=== PATIENT | female | born 1940 | race Caucasian/White ===

== ENCOUNTER 2021-06-27 16:57 | Emergency (ER) | payer MEDICARE, SELFPAY ==
--- NOTE | ~2021-06-27 | XR_ITS ---
EXAMINATION: XR hip RT min 2V DATE: 06/27/2021 19:28 INDICATION: Right hip pain. TECHNIQUE: Anteroposterior and frog-leg lateral views of the right hip were obtained. COMPARISON: None. FINDINGS: Old healed intertrochanteric fracture the proximal right femur with antegrade intramedullary ryan and femoral neck and distal interlocking screw fixation. Additional likely old healed fractures of the ri ght pubic body and superior pubic ramus. No acute fractures identified. Alignment of the healed fract ures remains near-anatomic. Mild right hip osteoarthritis. Mild atherosclerotic calcification is in t he pelvis and proximal right thigh. IMPRESSION: 1. Old healed fractures of the proximal right femur with internal fixation and of the right pubic bod y and superior pubic ramus. No acute osseous abnormality. 2. Mild right hip osteoarthritis. Reviewed, dictated and finalized at location A. SHEEP FARMER IMPRESSION: 1. Old healed fractures of the proximal right femur with internal fixation and of the right pubic body and superior pubic ramus. No acute osseous abnormality. 2. Mild right hip osteoarthritis.
[2021-06-27 17:35] VITALS: BP 106/67; PULSE 81; RESP 18; TEMP 36.6; O2SAT 100
[2021-06-27 17:57] VITALS: BP 103/81; PULSE 98; RESP 18; O2SAT 98
--- NOTE | 2021-06-27 18:11 | PC.NURSE ---
aware this RN unable to find pulse in foot. Triage nurse also alerted
--- NOTE | 2021-06-27 19:02 | ED.EXTPRO ---
HPI - Extremity Problem General Chief complaint: Extremity Problem,Nontraumatic Stated complaint: numbness and pain in leg Time Seen by Provider: 06/27/21 17:54 Source: patient and family Mode of arrival: ambulatory Limitations: no limitations History of Present Illness HPI Narrative: 81-year-old female Here for right leg pain She reports several weeks of pain in her right leg Sometimes she has pain in the proximal thigh and hip and butt but mostly she has pain in her calf and foot and that pain is mostly present after she is walked for a while She saw her doctor in [facility] and is scheduled to have vascular studies done in [facility] next week and it sounds like her cholesterol medications were intensified She is in this area visiting family until this Covid goes away and came to the ED tonight because she has been having some pain more in the foot more when she just tried to stand up for the last couple of days, and the foot felt more cool However right now this issue is resolved and she is able to walk around in the room without any issue at all Related Data Allergies Allergy/AdvReac Type Severity Reaction Status Date / Time morphine Allergy Severe RASH / Verified 06/27/21 18:10 SWELLING Review of Systems Review of Systems: All systems reviewed & are unremarkable except as noted in HPI and below Constitutional: Constitutional: Reports no additional constitutional complaints, Denies chills, Denies fever(s) and Denies headache(s) ENT: Denies headache(s) Cardiovascular: Cardiovascular: Denies chest pain and Denies dyspnea Respiratory: Respiratory: Denies cough and Denies dyspnea Gastrointestinal: Gastrointestinal: Denies diarrhea and Denies vomiting Genitourinary: Genitourinary: Denies urinary frequency Musculoskeletal: Musculoskeletal: Reports myalgias, Denies deformity, Reports arthralgias, Reports joint swelling and Denies numbness Integumentary/Breasts: Skin/Breast: Denies rash and Denies wounds Neurologic: Denies headache(s), Denies focal weakness and Reports numbness Psychiatric: Psychiatric: Reports no additional psychiatric complaints Endocrine: Endocrine: Reports no additional endocrine complaints Hematologic/Lymphatic: Hematologic/Lymphatic: Reports no additional hematologic/lymphatic complaints Allergic/Immunologic: Allergic/Immunologic: Reports no additional allergic/immunologic complaints Exam Const: General: cooperative, no acute distress and alert Nutritional Appearance: thin Orientation/consciousness: patient oriented x3 (alert) HENMT: Head: normal to inspection, normocephalic and atraumatic Ears: external ears normal General nose exam: no epistaxis Eyes: Conjunctivae: conjunctivae normal EOM: EOMs intact bilaterally Neck: Neck: normal visual inspection, supple and no JVD Resp: Effort & Inspection: normal respiratory effort and not labored Auscultation: other (BS =) Skin: General skin exam: normal color and no rashes or lesions noted Neuro: General: patient oriented x3 (alert) and moves all extremities Speech: normal speech Extrem: General: normal to inspection and no pedal edema Other: Right hip, no tenderness, good range of motion Right foot, slow cap refill 5 to 10 seconds; cannot Doppler a dorsalis pedis pulse; posterior tibial pulse is dopplerable and questionably palpable Right femoral pulse is 1-2+, left femoral pulse is 1+ Psych: Affect: normal affect Course Course Emergency Course: Went over various options at considerable length with patient and her daughter She is scheduled for outpatient arterial Dopplers here tomorrow morning I am very certain she will need to see a vascular surgeon after that for further assessment and various alternatives were presented to her Vital Signs Vital signs: Vital Signs Temperature 36.6 C 06/27/21 17:35 Pulse Rate 81 06/27/21 17:35 Respiratory Rate 18 06/27/21 17:35 Blood Pressure 106/
[2021-06-27 20:15] VITALS: O2SAT 100
[2021-06-27 20:16] VITALS: BP 105/73; O2SAT 98
[2021-06-27 20:28] VITALS: BP 101/63; O2SAT 95
[2021-06-27 20:40] VITALS: BP 101/63; PULSE 80; RESP 18; TEMP 36.6; O2SAT 99
== END 2021-06-27 20:46 | disposition home or self-care (01) ==
PROVIDERS: Emergency Provider Emergency Medicine; PCP Family Medicine
DX: I73.9 Peripheral vascular disease, unspecified (principal); M16.11 Unilateral primary osteoarthritis, right hip
CPT/HCPCS: 73502; 99283

== ENCOUNTER 2021-06-28 08:24 | Outpatient (CLI) | payer MEDICARE, SELFPAY ==
--- NOTE | ~2021-06-28 | US_ITS ---
EXAMINATION: US art doppler w press LE DATE: 06/28/2021 09:31 INDICATION: Peripheral vascular disease. Claudication. TECHNIQUE: Segmental pressures and plethysmographic and Doppler waveforms of the brachial and lower e xtremity arteries were obtained. COMPARISON: None. FINDINGS: Right and left brachial artery pressures of 99 mm Hg and 105 mm Hg, respectively, are concordant (nor mal difference <= 30 mmHg). The right high-thigh pressure index is 0.70 (normal > 1.2). The right ankle-brachial index (NANETTE) is 0 .35 (normal >= 0.9-1.0). The right dorsalis pedis arterial flow was not detectable. The right great t oe-brachial index (TBI) could not be measured due to inability to detect arterial flow in the great t oe (normal >= 0.65). Arterial Doppler waveforms are biphasic in common femoral artery, superficial fe moral artery, and popliteal artery and noisy in posterior tibial artery. The left high-thigh pressure index is 0.83. The left NANETTE is 0.81. The left TBI is 0.35. Arterial Dopp ler waveforms are noisy in common femoral artery, biphasic in superficial femoral artery and poplitea l artery, and noisy in posterior tibial artery and dorsalis pedis. IMPRESSION: 1. Severely decreased right NANETTE and mildly decreased left NANETTE, consistent with arterial occlusive dis ease. 2. Arterial flow not detectable in right dorsalis pedis and right great toe. Reviewed, dictated and finalized at location A. L POST INSTALLER IMPRESSION: 1. Severely decreased right NANETTE and mildly decreased left NANETTE, consistent with arterial occlusive disease. 2. Arterial flow not detectable in right dorsalis pedis and right great toe.
--- NOTE | 2021-06-28 10:38 | PC.NURSE ---
Pt's daughter Sherry notified of patient needing to return to the emergency department due to the results of the outpatient ultrasound. The daughter and the patient have chosen to proceed to another facility with a vascular doctor that they had been given in [facility]. 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 Verbalized understanding of needing prompt follow up.
== END 2021-06-28 08:25 | disposition home or self-care (01) ==
PROVIDERS: Visit Provider Emergency Medicine
DX: I73.9 Peripheral vascular disease, unspecified (principal)
CPT/HCPCS: 93923

== ENCOUNTER 2021-10-03 12:07 | Outpatient (CLI) | payer MEDICARE, SELFPAY ==
[2021-10-03 14:05] LABS: Prothrombin Time 22.2 Seconds (11.1-14.7)
== END 2021-10-03 12:08 | disposition home or self-care (01) ==
DX: I48.91 Unspecified atrial fibrillation (principal); Z79.01 Long term (current) use of anticoagulants
CPT/HCPCS: 36415; 85610

== ENCOUNTER 2022-05-02 10:34 | Inpatient (IN) | payer MEDICARE, SELFPAY ==
[2022-05-02] VITALS (11 sets, daily range): BP systolic 99–121; BP diastolic 63–79; PULSE 72–92; RESP 14–24; TEMP 36.4–36.6; O2SAT 92–97; BMI 17.2
--- NOTE | ~2022-05-02 | XR_ITS ---
XR chest 1V portable DATE: 05/02/2022 11:17 INDICATION: Increased shortness of breath TECHNIQUE: Portable AP chest on 05/02/2022 at 1110 hours COMPARISON: 09/04/2012 portable AP chest FINDINGS: Status post sternotomy and CABG. There is cardiomegaly. Prominent mitral annulus calcification. Prominent aortic arch calcification. There is mild pulmonary vascular congestion. There is mild prominence of the minor fissure, consiste nt with mild subpleural edema. There is bilateral lower lung infiltrate and/or consolidation, left greater than right. Mild pleural effusions, left greater than right. There is diffuse osteopenia. IMPRESSION: Bilateral lower lung infiltrate and/or atelectasis and mild pleural effusions, left great er than right Mild congestive heart failure Reviewed, dictated and finalized at location B. IMPRESSION: Bilateral lower lung infiltrate and/or atelectasis and mild pleural effusions, left greater than right Mild congestive heart failure
--- NOTE | ~2022-05-02 | CT_ITS ---
EXAMINATION: CT diagnostic chest wo con DATE: 05/02/2022 13:18 INDICATION: Shortness of breath. Evaluate for pneumonia versus CHF. TECHNIQUE: Computed tomography (CT) of the chest was performed without intravenous contrast. The dose -length product was 171.82 mGy-cm. Automated exposure control and iterative reconstruction technique were employed. COMPARISON: Chest x-ray dated 05/02/2022 FINDINGS: Cardiomegaly. Status post median sternotomy for CABG. No thoracic lymphadenopathy. Enlarged pulmonary arteries consistent with pulmonary arterial hypertension. Small pleural effusions. There i s emphysema. There is bilateral lower lobe airspace disease which may represent pneumonia and/or atel ectasis. There is a low-density lesion near the dome of the liver, most likely benign. No pneumothora x. There are multiple compression fractures of the thoracic and upper lumbar spine, age indeterminate . IMPRESSION: 1. Bilateral lower lobe airspace consolidation which may represent pneumonia and/or atelectasis. 2: Pulmonary arterial hypertension. 3: Small pleural effusions. 4: Emphysema. 5: Cardiomegaly. Reviewed, dictated and finalized at location A. IMPRESSION: 1. Bilateral lower lobe airspace consolidation which may represent pneumonia an d/or atelectasis. 2: Pulmonary arterial hypertension. 3: Small pleural effusions. 4: Emphysema. 5: Cardiomegaly.
--- NOTE | 2022-05-02 10:46 | ECG_ITS ---
Measurements Intervals [place] Rate: 89 P: RI: 0 QRS: -42 QRSD: 153 T: 130 QT: 379 QTc: 463 Interpretive Statements ATRIAL FIBRILLATION LEFT AXIS DEVIATION LEFT BUNDLE BRANCH BLOCK BASELINE WANDER- V3-V6 ABNORMAL ECG NO PREVIOUS ECG AVAILABLE FOR COMPARISON Electronically Signed On 05-02-2022 12:19:36 CDT by Ravinder Guerra D.O.
[2022-05-02 11:01] LABS: Basophils Absolute Auto 0.1 K/mm3 (0.0-0.1); Basophils Percent Auto 0.7 % (0.2-1.2); Eosinophils Percent Auto 0.3 % (0-4.4); Hematocrit 46.5 % (37.0-47.0); Hemoglobin 14.4 g/dL (12.0-15.0); Immature Granulocyte Absolute 0.02 K/mm3 (0.00-0.031); Immature Granulocyte Percent A 0.3 % (0-0.5); Lymphocytes Absolute Auto 1.09 K/mm3 (0.9-3.2); Lymphocytes Percent Auto 14.3 % (18.3-44.2); Mean Corpuscular Hemoglobin 29.8 pg (26-34); Mean Corpuscular Volume 96.3 fl (80-100); Mean Platelet Volume 11.2 fl (7.4-10.4); Monocytes Absolute Auto 0.6 K/mm3 (0.1-0.6); Monocytes Percent Auto 8.3 % (2.6-8.5); Neutrophils Absolute Auto 5.8 K/mm3 (1.3-6.7); Neutrophils Percent Auto 76.1 % (45.5-73.1); Platelet Count Result 245 k/mm3 (150-375); Red Blood Count 4.83 M/mm3 (4.2-5.4); Red Cell Distribution Width 16.7 % (11.5-14.5); White Blood Count 7.6 K/mm3 (4.5-10.0)
[2022-05-02 11:22] LABS: Alanine Aminotransferase 33 U/L (6-35); Albumin Level 4.7 g/dL (3.5-5.1); Alkaline Phosphatase 97 U/L (38-126); Anion Gap 19 mmol/L (8-16); Aspartate Amino Transferase 39 U/L (14-36); Bilirubin,Total 1.8 mg/dL (0.2-1.3); Blood Urea Nitrogen 27 mg/dL (7-17); Calcium 9.2 mg/dL (8.4-10.2); Carbon Dioxide 23 mmol/L (22-30); Chloride 98 mmol/L (98-107); Estimated Glomerular Filt Rate > 60; Glucose 135 mg/dL (65-110); Potassium 4.3 mmol/L (3.4-5.0); Sodium 140 mmol/L (137-145)
[2022-05-02 11:32] LABS: INR 4.8; Prothrombin Time 43.7 Seconds (11.1-14.7)
[2022-05-02 11:33] LABS: Partial Thromboplastin Time 62.2 SECONDS (22.3-36.8)
[2022-05-02 11:39] LABS: NT Pro B Type Natriuretic Pept 21400 pg/mL (5-100)
--- NOTE | 2022-05-02 11:51 | ED.SOB ---
HPI - SOB/Dyspnea General Chief Complaint: Shortness of Breath/Dyspnea Stated Complaint: SOB X3D. N/V Time Seen by Provider: 05/02/22 11:50 Source: patient and family Limitations: no limitations History of Present Illness HPI Narrative: 82 years old white female came to the emergency room with her daughter from home complaining of increased shortness of breath over the last 3 days. The daughter is telling me that patient ejection fraction around 11%. Patient is DNR, vaccinated for COVID, did not have booster dose yet, likely communication today patient is coming to see me. History of CABG, coronary stents recently, on Coumadin, stopped smoking 2020. Patient normally not on oxygen at home. The patient and her daughter are poor historian, does not know her past medical history, does not know the name of her medications. Normally she goes to [facility]. Related Data Home Medications Medication Instructions Recorded Confirmed aspirin 81 mg tablet,delayed 81 mg PO DAILY 05/02/22 05/02/22 release digoxin 125 mcg (0.125 mg) tablet 125 mcg PO DAILY 05/02/22 05/02/22 furosemide 20 mg tablet 20 mg PO DAILY 05/02/22 05/02/22 warfarin 2.5 mg tablet 2.5 mg PO 05/02/22 Allergies Allergy/AdvReac Type Severity Reaction Status Date / Time morphine Allergy Severe RASH / Verified 05/02/22 10:47 SWELLING Review of Systems Review of Systems: All systems reviewed & are unremarkable except as noted in HPI and below Exam Narrative: General appearance: Well-developed, well-nourished Skin: Normal color Head: Normocephalic, nontraumatic Eyes: Clear conjunctiva ENT: Oropharynx normal, ears normal, nose normal Neck: Supple, nontender Chest and respiratory: Airway patent, slight labored breathing, dry rales bilaterally Heart: Regular rate/rhythm Abdomen: Soft, nontender, no organomegaly, quiet bowel sounds Vascular: Normal peripheral pulses, normal capillary refill. 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 as tested, no gross motor deficit Course Vital Signs Vital signs: Vital Signs Temperature 36.6 C 05/02/22 10:44 Pulse Rate 92 05/02/22 10:44 Respiratory Rate 14 05/02/22 10:44 Blood Pressure 111/79 05/02/22 10:44 Pulse Oximetry 95 05/02/22 10:44 Oxygen Delivery Room Air 05/02/22 10:44 Temperature 36.6 C 05/02/22 10:44 Pulse Rate 92 05/02/22 10:51 Respiratory Rate 14 05/02/22 10:44 Blood Pressure 111/79 05/02/22 10:44 Pulse Oximetry 95 05/02/22 10:51 Oxygen Delivery Room Air 05/02/22 10:51 MDM - SOB/Dyspnea Lab Data Result diagrams: 05/02/22 10:55 05/02/22 10:55 Labs: Lab Results 05/02/22 05/02/22 05/02/22 Range/Units 10:55 10:55 10:55 WBC 7.6 (4.5-10.0) K/mm3 RBC 4.83 (4.2-5.4) M/mm3 Hgb 14.4 (12.0-15.0) g/dL Hct 46.5 (37.0-47.0) % MCV 96.3 (80-100) fl MCH 29.8 (26-34) pg MCHC 31.0 L (32-36) g/dl RDW 16.7 H (11.5-14.5) % Plt Count 245 (150-375) k/mm3 MPV 11.2 H (7.4-10.4) fl Immature Gran % (Auto) 0.3 (0-0.5) % Neut % (Auto) 76.1 H (45.5-73.1) % Lymph % (Auto) 14.3 L (18.3-44.2) % [place] % (Auto) 8.3 (2.6-8.5) % Eos % (Auto) 0.3 (0-4.4) % Baso % (Auto) 0.7 (0.2-1.2) % Lymph # (Auto) 1.09 (0.9-3.2) K/mm3 [place] # (Auto) 0.6 (0.1-0.6) K/mm3 Eos # (Auto) 0.0 (0-0.3) K/mm3 Baso # (Auto) 0.1 (0.0-0.1) K/mm3 Abs Immat Gran (auto) 0.02 (0.00-0.031) K/mm3 Absolute Neuts (auto) 5.8 (1.3-6.7) K/mm3 Absolute Nucleated RBC 0.0 (0.0-0.012) K/mm3 Nucleated RBC % 0.0 (0.0-0.
[2022-05-02 12:16] LABS: Alveolar/Arterial O2 Gradient 50.6 mmHg; Base Excess ABG -1.5 mEq/l (+/-2.0); Fractional Inspired Oxygen 21 %; HCO3 ABG 20.9 mEq/l (22.0-26.0); Oxygen Content ABG 17.5 %vol (16.0-22.0); Oxygen Saturation ABG 94.2 % (95.0-100.0); Oxyhemoglobin 91.7 % THb (90.0-100.0); PO2 ABG 64.4 mmHg (80.0-100.0); PO2 FiO2 Ratio Arterial Blood 3.07 %; Total Hemoglobin 13.6 g/dL (12.0-18.0); pH ABG 7.475 (7.350-7.450)
[2022-05-02 12:17] LABS: Device ROOM AIR; Modified Allen's Test Pass; Site Drawn LEFT BRACHIAL
[2022-05-02] MEDS: FUROSEMIDE INJ 40 MG/4 ML VIAL IV PUSH (12:48)
[2022-05-02 13:07] LABS: SARS-CoV-2 RNA PCR Negative
[2022-05-02 15:09] LABS: Digoxin 0.6 ng/mL (0.8-2.0)
[2022-05-02 16:41] LABS: Troponin I 0.058 ng/mL (0.000-0.034)
--- NOTE | 2022-05-02 18:04 | ADMGEN ---
This patient, Aline Calle, was admitted to IMU Room 205-01. Patient/family oriented to hospital policies and general routines including ID bracelet, bed and alarms, visiting hours, pain management, procedures, bathroom and other care routines, personal items, smoking policy, room service/diet, and visiting hours. Information on how to activate the Rapid Response Team has been discussed. Patient/Family are encouraged to report perceived risks to care and to ask questions if they do not understand what they are told or what they should do.
[2022-05-02 19:36] LABS: Troponin I 0.084 ng/mL (0.000-0.034)
[2022-05-02] MEDS: FUROSEMIDE INJ 40 MG/4 ML VIAL 20 MG IV PUSH (20:49)
--- NOTE | 2022-05-02 22:00 | PM.IMHP ---
H&P: HPI History of Present Illness Date/Time: 05/02/22 22:00 Chief Complaint: Shortness of breath. Narrative: This is an 82-year-old female with coronary artery disease with history of stents and CABG, heart failure with reduced ejection fraction, peripheral vascular disease status post lower extremity stents, and emphysema who presented to the emergency department via private vehicle from home for evaluation of shortness of breath. She has chronic dyspnea on exertion and chronic orthopnea (sleeps on the couch) however over the last several days she has been getting short of breath with minimal activity (adjusting herself in bed) and she has also had intermittent tightness in her chest though she reports that is not similar when she had a previous heart attack. On arrival to the emergency department she was reportedly ?gasping for air? and she was placed on 2 liters nasal cannula for comfort. Chest x-ray showed bilateral infiltrates and/or atelectasis, small pleural effusions, and mild congestive changes. A chest CT showed the same in addition to findings of pulmonary arterial hypertension, emphysema, and cardiomegaly. Her troponin was elevated 0.050 and proBNP was markedly elevated 21,400. She is being admitted in this setting for CHF exacerbation and closer monitoring. At the time my evaluation she is feeling a bit better and she has no current chest discomfort. She denies syncope, presyncope, pleuritic pain, palpitations, nausea, vomiting, sweats, cough, sinus congestion, sore throat, and lower extremity edema. She denies sick contacts. Review of Systems Review of Systems: Twelve systems were reviewed and are negative except for as per HPI. [facility] Past Medical History Medical History (Updated 05/03/22 @ 00:24 by Tamie London PA-C) Chronic anticoagulation Patient is uncertain as to why she is on warfarin. Coronary artery disease Followed by [facility]. Dyslipidemia Emphysema lung Former smoker Heart failure with reduced ejection fraction Hypertension Peripheral vascular disease Pulmonary hypertension Surgical History Surgical History (Updated 05/03/22 @ 00:19 by Tamie London PA-C) History of coronary artery bypass graft History of coronary artery stent placement History of open reduction and internal fixation (ORIF) procedure Right femur. History of tonsillectomy Family History Family History (Updated 05/03/22 @ 00:19 by Tamie London PA-C) Other Heart disease Hypertension Social History Social History (Updated 05/03/22 @ 00:20 by Tamie London PA-C) Social History: Surrogate medical decision maker: Sherry Flower or Rishabh De Los Santos, children. Code status: Do not resuscitate. Smoking packs per day: 1 Smoking cigarettes per day: 20.0 Years smoked: 50 Smoking pack-years: 50.00 Smoking status: Former smoker Additional smoking assessment comments: Quit in June 2021. Alcohol intake: never Substance use: never Additional living arrangements comments: Currently staying with a friend in the area, originally from [place]. Spiritual care concerns: Yes (pt just wants a visit) Meds Home Medications and Allergies Home Medications Medication Instructions Recorded Confirmed Type aspirin 81 mg tablet,delayed 81 mg PO DAILY 05/02/22 05/02/22 History release digoxin 125 mcg (0.125 mg) tablet 125 mcg PO DAILY 05/02/22 05/02/22 History furosemide 20 mg tablet 20 mg PO DAILY 05/02/22 05/02/22 History warfarin 2.5 mg tablet 2.5 mg PO DAILY 05/02/22 05/02/22 History Allergies Allergy/AdvReac Type Severity Reaction Status Date / Time morphine Allergy Severe RASH / Verified 05/02/22 10:47 SWELLING Vital Signs Vital Signs - 24 hr 05/02/22 10:44 05/02/22 10:51 05/02/22 10:51 Temperature 97.8 F Pulse Rate 92 92 Respiratory Rate 14 Blood Pressure 111/79 Pulse Oximetry 95 95 Oxygen Delivery Room Air Room Air O
[2022-05-03] VITALS (13 sets, daily range): BP systolic 96–114; BP diastolic 63–80; PULSE 66–99; RESP 18–22; TEMP 36.4–36.6; O2SAT 92–99; BMI 17.2
[2022-05-03 04:47] LABS: Hematocrit 41.6 % (37.0-47.0); Hemoglobin 12.9 g/dL (12.0-15.0); Mean Corpuscular Hemoglobin 29.4 pg (26-34); Mean Corpuscular Volume 94.8 fl (80-100); Mean Platelet Volume 10.8 fl (7.4-10.4); Platelet Count Result 194 k/mm3 (150-375); Red Blood Count 4.39 M/mm3 (4.2-5.4); Red Cell Distribution Width 16.3 % (11.5-14.5); White Blood Count 6.3 K/mm3 (4.5-10.0)
[2022-05-03 04:59] LABS: INR 4.4; Prothrombin Time 40.7 Seconds (11.1-14.7)
[2022-05-03 05:01] LABS: Alanine Aminotransferase 23 U/L (6-35); Albumin Level 3.9 g/dL (3.5-5.1); Alkaline Phosphatase 81 U/L (38-126); Anion Gap 12 mmol/L (8-16); Aspartate Amino Transferase 25 U/L (14-36); Bilirubin,Total 1.3 mg/dL (0.2-1.3); Blood Urea Nitrogen 25 mg/dL (7-17); Calcium 8.7 mg/dL (8.4-10.2); Carbon Dioxide 29 mmol/L (22-30); Chloride 98 mmol/L (98-107); Estimated CRCL calculation 39 ml/min; Estimated Glomerular Filt Rate > 60; Glucose 92 mg/dL (65-110); Potassium 4.6 mmol/L (3.4-5.0); Sodium 139 mmol/L (137-145)
--- NOTE | 2022-05-03 09:25 | P.CONCA_ITS ---
Assessment and Plan Assessment and plan (1) Acute on chronic systolic heart failure: Code(s): I50.23 - Acute on chronic systolic (congestive) heart failure Status: Acute Assessment and Plan: Patient with a known cardiomyopathy, EF she 5-10%, admitted with mild exacerbation of her chronic systolic heart failure. * Not very volume overloaded. * Not clear what the eliciting event was. No nonsteroidal use. No recent medication changes. Most likely this exacerbation is just the nature of her underlying cardiomyopathy, although when she last saw her complex care nurse practitioner apparently she was in NSR so the AFib may possibly be contributing as well. * Continue Lasix IV for another couple doses * Daily BMP (2) Elevated troponin: Code(s): R77.8 - Other specified abnormalities of plasma proteins Status: Acute Assessment and Plan: The patient has elevated troponins although these are flat. Her symptoms seem very atypical. * Cardiac catheterization in August 02 did not show any need for intervention. * I think is unlikely she has had an acute coronary syndrome event. * I do not think she needs an ischemia evaluation this admission. (3) Paroxysmal atrial fibrillation: Code(s): I48.0 - Paroxysmal atrial fibrillation Status: Acute Assessment and Plan: History of paroxysmal AFib, currently persistent. * Chronically anticoagulated with warfarin. Was supratherapeutic on admission and warfarin is being held. (4) Dilated cardiomyopathy: Code(s): I42.0 - Dilated cardiomyopathy Status: Acute Assessment and Plan: Cardiomyopathy, dilated versus ischemic, EF 5-10% as of July 2021, 10-15% in October 2021. * Unable to tolerate usual guideline directed therapy due to low blood pressure. * Now on fairly minimal cardiac therapy * On discharge, follow-up with her per usual complex care nurse practitioner Dr. Browne. Dr. Browne is encouraging palliative care. * Patient is DNR status. (5) Coronary artery disease: Code(s): I25.10 - Atherosclerotic heart disease of [place] coronary artery without angina pectoris Status: Acute Assessment and Plan: History of CAD, and remote CABG * Taking aspirin but not on statin therapy as patient did desire to reduce number of medications * Atypical chest pain, doubt angina (6) LBBB (left bundle branch block): Code(s): I44.7 - Left bundle-branch block, unspecified Status: Acute Assessment and Plan: Chronic LBBB. (7) Chronic anticoagulation: Code(s): Z79.01 - prison (current) use of anticoagulants Status: Acute Assessment and Plan: On warfarin for paroxysmal AFib, supratherapeutic INR on admission. * Warfarin on hold (8) Peripheral vascular disease: Code(s): I73.9 - Peripheral vascular disease, unspecified Status: Acute Assessment and Plan: History of intervention in the past, not an active problem. (9) DNR (do not resuscitate): Code(s): Z66 - Do not resuscitate Status: Acute Assessment and Plan: Patient is a DNR status. The patient's complex care nurse practitioner is encouraging palliative care. History of Present Illness History of Present Illness Consult date/time: 05/03/22 09:25 Reason For Visit: chf,elevated troponin,coumadin coagulopathy Narrative: Aline Calle is an 82-year-old female whom I was asked to see at the request of Tamie London PA-C, for my advice and
--- NOTE | 2022-05-03 09:25 | PM.CNCAR ---
Assessment and Plan Assessment and plan (1) Acute on chronic systolic heart failure: Code(s): I50.23 - Acute on chronic systolic (congestive) heart failure Status: Acute Assessment and Plan: Patient with a known cardiomyopathy, EF she 5-10%, admitted with mild exacerbation of her chronic systolic heart failure. Not very volume overloaded. Not clear what the eliciting event was. No nonsteroidal use. No recent medication changes. Most likely this exacerbation is just the nature of her underlying cardiomyopathy, although when she last saw her dramatic coach apparently she was in NSR so the AFib may possibly be contributing as well. Continue Lasix IV for another couple doses Daily BMP (2) Elevated troponin: Code(s): R77.8 - Other specified abnormalities of plasma proteins Status: Acute Assessment and Plan: The patient has elevated troponins although these are flat. Her symptoms seem very atypical. Cardiac catheterization in August 02 did not show any need for intervention. I think is unlikely she has had an acute coronary syndrome event. I do not think she needs an ischemia evaluation this admission. (3) Paroxysmal atrial fibrillation: Code(s): I48.0 - Paroxysmal atrial fibrillation Status: Acute Assessment and Plan: History of paroxysmal AFib, currently persistent. Chronically anticoagulated with warfarin. Was supratherapeutic on admission and warfarin is being held. (4) Dilated cardiomyopathy: Code(s): I42.0 - Dilated cardiomyopathy Status: Acute Assessment and Plan: Cardiomyopathy, dilated versus ischemic, EF 5-10% as of July 2021, 10-15% in October 2021. Unable to tolerate usual guideline directed therapy due to low blood pressure. Now on fairly minimal cardiac therapy On discharge, follow-up with her per usual dramatic coach Dr. Browne. Dr. Browne is encouraging palliative care. Patient is DNR status. (5) Coronary artery disease: Code(s): I25.10 - Atherosclerotic heart disease of [place] coronary artery without angina pectoris Status: Acute Assessment and Plan: History of CAD, and remote CABG Taking aspirin but not on statin therapy as patient did desire to reduce number of medications Atypical chest pain, doubt angina (6) LBBB (left bundle branch block): Code(s): I44.7 - Left bundle-branch block, unspecified Status: Acute Assessment and Plan: Chronic LBBB. (7) Chronic anticoagulation: Code(s): Z79.01 - group home (current) use of anticoagulants Status: Acute Assessment and Plan: On warfarin for paroxysmal AFib, supratherapeutic INR on admission. Warfarin on hold (8) Peripheral vascular disease: Code(s): I73.9 - Peripheral vascular disease, unspecified Status: Acute Assessment and Plan: History of intervention in the past, not an active problem. (9) DNR (do not resuscitate): Code(s): Z66 - Do not resuscitate Status: Acute Assessment and Plan: Patient is a DNR status. The patient's dramatic coach is encouraging palliative care. History of Present Illness History of Present Illness Consult date/time: 05/03/22 09:25 Reason For Visit: chf,elevated troponin,coumadin coagulopathy Narrative: Aline Calle is an 82-year-old female whom I was asked to see at the request of Tamie London PA-C, for my advice and opinion regarding her CHF exacerbation and elevated troponins, in consultation. Ms Calle has memory problems and is a poor historian. She has history of coronary disease starting in her 50s, remote CABG, coronary stents June 2021? , and an apparent ejection fraction of 11%. She is anticoagulated with warfarin which may be a relatively new medication. She sees a dramatic coach in [place] whose name she can not quite remember (Dr. Browne, office [phone] -- call placed), and was seen 1 week ago. Sh
[2022-05-03] MEDS: DIGOXIN TAB 125 MCG TABLET PO (12:24)
[2022-05-03] MEDS: ASPIRIN 81 MG ENTERIC TABLET PO (12:24)
[2022-05-03] MEDS: FUROSEMIDE INJ 40 MG/4 ML VIAL 20 MG IV PUSH ×2 (12:27→20:08)
--- NOTE | 2022-05-03 14:09 | PM.IMPN ---
Progress Note: A&P Assessment and Plan (1) Acute exacerbation of congestive heart failure: Code(s): I50.9 - Heart failure, unspecified Status: Acute Assessment and Plan: Continue to diuresis with IV lasix bid Monitor BMP Pt seen by cardiology Pt started on digoxin orally (2) Heart failure with reduced ejection fraction: Code(s): I50.20 - Unspecified systolic (congestive) heart failure Status: Acute Assessment and Plan: Pt has history of history of coronary disease, CABG, coronary stents recently, an apparent and ejection fraction of 11% (3) Chronic anticoagulation: Code(s): Z79.01 - [facility] (current) use of anticoagulants Status: Acute Assessment and Plan: Pt is on warfarin (4) Warfarin-induced coagulopathy: Code(s): D68.32 - Hemorrhagic disorder due to extrinsic circulating anticoagulants; T45.515A - Adverse effect of anticoagulants, initial encounter Status: Acute Assessment and Plan: Pt is on eliquis (5) Elevated troponin: Code(s): R77.8 - Other specified abnormalities of plasma proteins Status: Acute Assessment and Plan: Trop raise likley related to cHF exacerbation (6) Pulmonary hypertension: Code(s): I27.20 - Pulmonary hypertension, unspecified Status: Acute Assessment and Plan: Secondary to emphysema (7) Peripheral vascular disease: Code(s): I73.9 - Peripheral vascular disease, unspecified Status: Acute Assessment and Plan: 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 (8) Emphysema lung: Code(s): J43.9 - Emphysema, unspecified Status: Acute Assessment and Plan: Secondary to residential smoking (9) Coronary artery disease: Code(s): I25.10 - Atherosclerotic heart disease of [place] coronary artery without angina pectoris Status: Acute Assessment and Plan: chronic history (10) Hypertension: Code(s): I10 - Essential (primary) hypertension Status: Acute Assessment and Plan: chronic history Subjective Date/time seen: 05/03/22 14:09 82-year-old female with coronary artery disease with history of stents and CABG, heart failure with reduced ejection fraction, peripheral vascular disease status post lower extremity stents, and emphysema who presented to the emergency department via private vehicle from home for evaluation of shortness of breath. She has chronic dyspnea on exertion and chronic orthopnea (sleeps on the couch) however over the last several days she has been getting short of breath with minimal activity (adjusting herself in bed) and she has also had intermittent tightness in her chest though she reports that is not similar when she had a previous heart attack. Pt is admitted or SOB and cHF excerbation Pt feels sob on speaking and resting continue present care Cardiology on board Review of Systems Review of Systems: SOB at rest SOB on speaking Objective Data Vital Signs Vital Signs: Vital Signs - 24 hr 05/02/22 14:25 05/02/22 17:19 05/02/22 18:22 Temperature 36.4 C L Pulse Rate 90 85 81 Respiratory Rate 21 H 20 20 Blood Pressure 121/79 104/76 110/75 Pulse Oximetry 95 95 95 Oxygen Delivery Oxygen Flow Rate 05/02/22 18:30 05/02/22 20:00 05/02/22 20:00 Temperature 36.4 C Pulse Rate 81 72 Respiratory Rate 22 H Blood Pressure 102/69 Pulse Oximetry 92 Oxygen Delivery Room Air Oxygen Flow Rate 05/02/22 20:00 05/02/22 22:00 05/02/22 23:15 Temperature 36.5 C Pulse Rate 81 84 86 Respiratory Rate 22 H 20 Blood Pressure 99/63 L Pulse Oximetry 92 92 Oxygen Delivery Nasal Cannula Oxygen Flow Rate 2 05/03/22 00:00 05/03/22 00:00 05/03/22 01:56 Temperature Pulse Rate 82 82 78 Respiratory Rate 20 Blood Pressure Pulse Oximetry 92 Oxygen Delivery Nasal Cannula Oxygen Flow Rate 2 05/03/22 04:00 05/03/22 04:00 05/03/22 04:00 Temperat
[2022-05-04] VITALS (12 sets, daily range): BP systolic 91–111; BP diastolic 53–69; PULSE 58–104; RESP 16–20; TEMP 36.4–37.1; O2SAT 94–99
[2022-05-04 08:39] LABS: Anion Gap 9 mmol/L (8-16); Blood Urea Nitrogen 18 mg/dL (7-17); Calcium 8.5 mg/dL (8.4-10.2); Carbon Dioxide 31 mmol/L (22-30); Chloride 98 mmol/L (98-107); Estimated CRCL calculation 39 ml/min; Estimated Glomerular Filt Rate > 60; Glucose 80 mg/dL (65-110); Potassium 3.9 mmol/L (3.4-5.0); Sodium 138 mmol/L (137-145)
[2022-05-04 08:40] LABS: INR 3.5; Prothrombin Time 33.8 Seconds (11.1-14.7)
[2022-05-04 08:59] LABS: Hemoglobin 13.9 g/dL (12.0-15.0); Mean Corpuscular HGB Conc 30.9 g/dl (32-36); Mean Corpuscular Hemoglobin 29.7 pg (26-34); Mean Corpuscular Volume 96.2 fl (80-100); Mean Platelet Volume 11.4 fl (7.4-10.4); Platelet Count Result 214 k/mm3 (150-375); Red Blood Count 4.68 M/mm3 (4.2-5.4); Red Cell Distribution Width 16.4 % (11.5-14.5)
[2022-05-04] MEDS: FUROSEMIDE INJ 40 MG/4 ML VIAL 20 MG IV PUSH ×2 (10:07→20:17)
[2022-05-04] MEDS: DIGOXIN TAB 125 MCG TABLET PO (10:08)
[2022-05-04] MEDS: ASPIRIN 81 MG ENTERIC TABLET PO (10:09)
--- NOTE | 2022-05-04 11:33 | PM.PNCARD ---
Progress Note: A&P Assessment and Plan (1) Acute on chronic systolic heart failure: Code(s): I50.23 - Acute on chronic systolic (congestive) heart failure Status: Acute Assessment and Plan: Patient with a known cardiomyopathy, EF she 5-10%, admitted with mild exacerbation of her chronic systolic heart failure. Improving Continue Lasix IV for another couple doses, perhaps shift to p.o. tomorrow Daily BMP (2) Elevated troponin: Code(s): R77.8 - Other specified abnormalities of plasma proteins Status: Acute Assessment and Plan: The patient has elevated troponins although these are flat. Her symptoms seem very atypical. No ischemic workup recommended. (3) Paroxysmal atrial fibrillation: Code(s): I48.0 - Paroxysmal atrial fibrillation Status: Acute Assessment and Plan: History of paroxysmal AFib, currently persistent. Chronically anticoagulated with warfarin. Was supratherapeutic on admission and warfarin is being held. (4) Dilated cardiomyopathy: Code(s): I42.0 - Dilated cardiomyopathy Status: Acute Assessment and Plan: Cardiomyopathy, dilated versus ischemic, EF 5-10% as of July 2021, 10-15% in October 2021. Unable to tolerate usual guideline directed therapy due to low blood pressure. Now on fairly minimal cardiac therapy On discharge, follow-up with her per usual transplant registered nurse Dr. Browne. Dr. Browne is encouraging palliative care. Patient is DNR status. (5) Coronary artery disease: Code(s): I25.10 - Atherosclerotic heart disease of [place] coronary artery without angina pectoris Status: Acute Assessment and Plan: History of CAD, and remote CABG Taking aspirin but not on statin therapy as patient did desire to reduce number of medications Atypical chest pain, doubt angina (6) LBBB (left bundle branch block): Code(s): I44.7 - Left bundle-branch block, unspecified Status: Acute Assessment and Plan: Chronic LBBB. (7) Chronic anticoagulation: Code(s): Z79.01 - senior care (current) use of anticoagulants Status: Acute Assessment and Plan: On warfarin for paroxysmal AFib, supratherapeutic INR on admission. Warfarin on hold (8) Peripheral vascular disease: Code(s): I73.9 - Peripheral vascular disease, unspecified Status: Acute Assessment and Plan: History of intervention in the past, not an active problem. (9) DNR (do not resuscitate): Code(s): Z66 - Do not resuscitate Status: Acute Assessment and Plan: Patient is a DNR status. The patient's transplant registered nurse is encouraging palliative care. Subjective Date/time seen: 05/04/22 11:33 cardiology follow up for CHF Review of Systems Constitutional: Constitutional: Denies fever(s) Cardiovascular: Cardiovascular: Reports chest pain, Denies pedal edema, Denies leg edema, Denies lightheadedness, Denies palpitations, Reports dyspnea and Reports dyspnea on exertion Respiratory: Respiratory: Denies chest congestion, Denies cough, Reports dyspnea and Reports dyspnea on exertion Gastrointestinal: Gastrointestinal: Reports abdominal pain (Occ RLQ pain) and Denies hematochezia Genitourinary: Genitourinary: Denies hematuria Musculoskeletal: Musculoskeletal: Reports no additional musculoskeletal complaints and Reports arthralgias Integumentary/Breasts: Skin/Breast: Reports system reviewed and no additional complaints, except as docu Neurologic: Reports system reviewed and no additional complaints, except as documented, Denies behavioral changes and Denies confusion Psychiatric: Psychiatric: Denies behavioral changes and Denies confusion Endocrine: Endocrine: Denies palpitations Exam Narrative: Pleasant older chatty lady NAD Const: General: cooperative, healthy appearing and comfortable; No confusion Orientation/consciousness: oriented to person and No confusion HENCA
--- NOTE | 2022-05-04 13:28 | PC.NURSE ---
On 05/04/22, the student, [Rashmi Brower], provided care and completed [facility] documentation on this patient. I have reviewed the student's documentation and agree with the findings.
--- NOTE | 2022-05-04 17:47 | PM.IMPN ---
Progress Note: A&P Assessment and Plan (1) Acute exacerbation of congestive heart failure: Code(s): I50.9 - Heart failure, unspecified Status: Acute Assessment and Plan: Continue to diuresis with IV lasix bid Monitor BMP Pt seen by cardiology Pt started on digoxin orally EF 5-10% which is chronic (2) Heart failure with reduced ejection fraction: Code(s): I50.20 - Unspecified systolic (congestive) heart failure Status: Acute Assessment and Plan: Pt has history of history of coronary disease, CABG, coronary stents recently, an apparent and ejection fraction of 11% (3) Chronic anticoagulation: Code(s): Z79.01 - terminal supervisor (current) use of anticoagulants Status: Acute Assessment and Plan: Pt is on warfarin (4) Warfarin-induced coagulopathy: Code(s): D68.32 - Hemorrhagic disorder due to extrinsic circulating anticoagulants; T45.515A - Adverse effect of anticoagulants, initial encounter Status: Acute Assessment and Plan: patient warfarin but with supratherapeutic INR on admission (5) Elevated troponin: Code(s): R77.8 - Other specified abnormalities of plasma proteins Status: Acute Assessment and Plan: Trop raise likley related to cHF exacerbation (6) Pulmonary hypertension: Code(s): I27.20 - Pulmonary hypertension, unspecified Status: Acute Assessment and Plan: Secondary to emphysema (7) Peripheral vascular disease: Code(s): I73.9 - Peripheral vascular disease, unspecified Status: Acute Assessment and Plan: Secondary to group home smoking (8) Emphysema lung: Code(s): J43.9 - Emphysema, unspecified Status: Acute Assessment and Plan: Secondary to group home smoking (9) Coronary artery disease: Code(s): I25.10 - Atherosclerotic heart disease of [place] coronary artery without angina pectoris Status: Acute Assessment and Plan: chronic history (10) Hypertension: Code(s): I10 - Essential (primary) hypertension Status: Acute Assessment and Plan: chronic history Plan coronary artery disease with remote history of CABG. On aspirin # do not resuscitate on palliative care Known cardiomyopathy with ejection fraction 5-15% July 2021 Subjective Date/time seen: 05/04/22 17:47 Interval history: HPI:This is an 82-year-old female with coronary artery disease with history of stents and CABG, heart failure with reduced ejection fraction, peripheral vascular disease status post lower extremity stents, and emphysema who presented to the emergency department via private vehicle from home for evaluation of shortness of breath. She has chronic dyspnea on exertion and chronic orthopnea (sleeps on the couch) however over the last several days she has been getting short of breath with minimal activity (adjusting herself in bed) and she has also had intermittent tightness in her chest though she reports that is not similar when she had a previous heart attack. On arrival to the emergency department she was reportedly ?gasping for air? and she was placed on 2 liters nasal cannula for comfort. Chest x-ray showed bilateral infiltrates and/or atelectasis, small pleural effusions, and mild congestive changes. A chest CT showed the same in addition to findings of pulmonary arterial hypertension, emphysema, and cardiomegaly. Her troponin was elevated 0.050 and proBNP was markedly elevated 21,400. She is being admitted in this setting for CHF exacerbation and closer monitoring. At the time my evaluation she is feeling a bit better and she has no current chest discomfort. She denies syncope, presyncope, pleuritic pain, palpitations, nausea, vomiting, sweats, cough, sinus congestion, sore throat, and lower extremity edema. She denies sick contacts. 05/04/2022 feeling a bit better has not been ambulatory yet, no chest pain Review of Systems Review of Systems:
[2022-05-05] VITALS (10 sets, daily range): BP systolic 89–103; BP diastolic 42–64; PULSE 60–88; RESP 18–20; TEMP 36.3–37.1; O2SAT 91–100
[2022-05-05 05:23] LABS: Basophils Percent Auto 0.5 % (0.2-1.2); Eosinophils Absolute Auto 0.2 K/mm3 (0-0.3); Eosinophils Percent Auto 2.6 % (0-4.4); Hematocrit 40.8 % (37.0-47.0); Hemoglobin 12.8 g/dL (12.0-15.0); Immature Granulocyte Absolute 0.01 K/mm3 (0.00-0.031); Immature Granulocyte Percent A 0.2 % (0-0.5); Lymphocytes Absolute Auto 1.22 K/mm3 (0.9-3.2); Lymphocytes Percent Auto 20.9 % (18.3-44.2); Mean Corpuscular HGB Conc 31.4 g/dl (32-36); Mean Corpuscular Hemoglobin 29.6 pg (26-34); Mean Corpuscular Volume 94.2 fl (80-100); Mean Platelet Volume 11.3 fl (7.4-10.4); Monocytes Absolute Auto 0.5 K/mm3 (0.1-0.6); Monocytes Percent Auto 8.6 % (2.6-8.5); Neutrophils Absolute Auto 3.9 K/mm3 (1.3-6.7); Neutrophils Percent Auto 67.2 % (45.5-73.1); Platelet Count Result 204 k/mm3 (150-375); Red Blood Count 4.33 M/mm3 (4.2-5.4); Red Cell Distribution Width 15.9 % (11.5-14.5); White Blood Count 5.8 K/mm3 (4.5-10.0)
[2022-05-05 05:33] LABS: INR 2.6; Prothrombin Time 26.6 Seconds (11.1-14.7)
[2022-05-05 05:35] LABS: Alanine Aminotransferase 20 U/L (6-35); Albumin Level 3.4 g/dL (3.5-5.1); Alkaline Phosphatase 83 U/L (38-126); Anion Gap 8 mmol/L (8-16); Aspartate Amino Transferase 19 U/L (14-36); Blood Urea Nitrogen 19 mg/dL (7-17); Calcium 8.1 mg/dL (8.4-10.2); Carbon Dioxide 29 mmol/L (22-30); Chloride 99 mmol/L (98-107); Estimated CRCL calculation 44 ml/min; Estimated Glomerular Filt Rate > 60; Glucose 75 mg/dL (65-110); Magnesium 1.8 mg/dL (1.6-2.3); Potassium 3.2 mmol/L (3.4-5.0); Sodium 136 mmol/L (137-145)
[2022-05-05] MEDS: ASPIRIN 81 MG ENTERIC TABLET PO (09:04)
[2022-05-05] MEDS: DIGOXIN TAB 125 MCG TABLET PO (09:04)
[2022-05-05] MEDS: POTASSIUM CHLORIDE 20 MEQ TABLET 40 MEQ PO (09:08)
[2022-05-05] MEDS: FUROSEMIDE 40 MG TABLET PO (09:10)
--- NOTE | 2022-05-05 09:59 | PM.IMPN ---
Progress Note: A&P Assessment and Plan (1) Acute exacerbation of congestive heart failure: Code(s): I50.9 - Heart failure, unspecified Status: Acute Assessment and Plan: Continue to diuresis with IV lasix bid Monitor BMP Pt seen by cardiology Pt started on digoxin orally EF 5-10% which is chronic Lasix Switched to oral (2) Heart failure with reduced ejection fraction: Code(s): I50.20 - Unspecified systolic (congestive) heart failure Status: Acute Assessment and Plan: Pt has history of history of coronary disease, CABG, coronary stents recently, an apparent and ejection fraction of 11% (3) Chronic anticoagulation: Code(s): Z79.01 - nursing home (current) use of anticoagulants Status: Acute Assessment and Plan: Pt is on warfarin On are normal will restart (4) Warfarin-induced coagulopathy: Code(s): D68.32 - Hemorrhagic disorder due to extrinsic circulating anticoagulants; T45.515A - Adverse effect of anticoagulants, initial encounter Status: Acute Assessment and Plan: patient warfarin but with supratherapeutic INR on admission (5) Elevated troponin: Code(s): R77.8 - Other specified abnormalities of plasma proteins Status: Acute Assessment and Plan: Trop raise likley related to cHF exacerbation (6) Pulmonary hypertension: Code(s): I27.20 - Pulmonary hypertension, unspecified Status: Acute Assessment and Plan: Secondary to emphysema (7) Peripheral vascular disease: Code(s): I73.9 - Peripheral vascular disease, unspecified Status: Acute Assessment and Plan: Secondary to alf smoking (8) Emphysema lung: Code(s): J43.9 - Emphysema, unspecified Status: Acute Assessment and Plan: Secondary to alf smoking (9) Coronary artery disease: Code(s): I25.10 - Atherosclerotic heart disease of [place] coronary artery without angina pectoris Status: Acute Assessment and Plan: chronic history (10) Hypertension: Code(s): I10 - Essential (primary) hypertension Status: Acute Assessment and Plan: chronic history Plan coronary artery disease with remote history of CABG. On aspirin code status:do not resuscitate on palliative care Known cardiomyopathy with ejection fraction 5-15% July 2021 PT OT to see ambulate Nicole removal once more ambulatory Subjective Date/time seen: 05/05/22 09:59 Interval history: HPI:This is an 82-year-old female with coronary artery disease with history of stents and CABG, heart failure with reduced ejection fraction, peripheral vascular disease status post lower extremity stents, and emphysema who presented to the emergency department via private vehicle from home for evaluation of shortness of breath. She has chronic dyspnea on exertion and chronic orthopnea (sleeps on the couch) however over the last several days she has been getting short of breath with minimal activity (adjusting herself in bed) and she has also had intermittent tightness in her chest though she reports that is not similar when she had a previous heart attack. On arrival to the emergency department she was reportedly ?gasping for air? and she was placed on 2 liters nasal cannula for comfort. Chest x-ray showed bilateral infiltrates and/or atelectasis, small pleural effusions, and mild congestive changes. A chest CT showed the same in addition to findings of pulmonary arterial hypertension, emphysema, and cardiomegaly. Her troponin was elevated 0.050 and proBNP was markedly elevated 21,400. She is being admitted in this setting for CHF exacerbation and closer monitoring. At the time my evaluation she is feeling a bit better and she has no current chest discomfort. She denies syncope, presyncope, pleuritic pain, palpitations, nausea, vomiting, sweats, cough, sinus congestion, sore throat, and lower extremity edema. She denies sick contacts
--- NOTE | 2022-05-05 11:00 | PM.PNCARD ---
Progress Note: A&P Assessment and Plan (1) Acute on chronic systolic heart failure: Code(s): I50.23 - Acute on chronic systolic (congestive) heart failure Status: Acute Assessment and Plan: Patient with a known cardiomyopathy, EF she 5-10%, admitted with mild exacerbation of her chronic systolic heart failure. Improved. Looks euvolemic on exam. Shifted to p.o. furosemide this morning OK for discharge today from a cardiac standpoint. Close follow up with her test driller, Dr. Browne (2) Elevated troponin: Code(s): R77.8 - Other specified abnormalities of plasma proteins Status: Acute Assessment and Plan: The patient has elevated troponins although these are flat. Her symptoms seem very atypical. No ischemic workup recommended. (3) Paroxysmal atrial fibrillation: Code(s): I48.0 - Paroxysmal atrial fibrillation Status: Acute Assessment and Plan: History of paroxysmal AFib, currently persistent. Chronically anticoagulated with warfarin. Was supratherapeutic on admission. INR 2.6 today. (4) Dilated cardiomyopathy: Code(s): I42.0 - Dilated cardiomyopathy Status: Acute Assessment and Plan: Cardiomyopathy, dilated versus ischemic, EF 5-10% as of July 2021, 10-15% in October 2021. Unable to tolerate usual guideline directed therapy due to low blood pressure. Now on fairly minimal cardiac therapy On discharge, follow-up with her per usual test driller Dr. Browne. Dr. Browne is encouraging palliative care. Patient is DNR status. (5) Coronary artery disease: Code(s): I25.10 - Atherosclerotic heart disease of [place] coronary artery without angina pectoris Status: Acute Assessment and Plan: History of CAD, and remote CABG Taking aspirin but not on statin therapy as patient did desire to reduce number of medications Atypical chest pain, doubt angina (6) LBBB (left bundle branch block): Code(s): I44.7 - Left bundle-branch block, unspecified Status: Acute Assessment and Plan: Chronic LBBB. 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 Warfarin on hold (8) Peripheral vascular disease: Code(s): I73.9 - Peripheral vascular disease, unspecified Status: Acute Assessment and Plan: History of intervention in the past, not an active problem. (9) DNR (do not resuscitate): Code(s): Z66 - Do not resuscitate Status: Acute Assessment and Plan: Patient is a DNR status. The patient's test driller is encouraging palliative care. Subjective Date/time seen: 05/05/22 11:00 Cardiology follow up for CHF Interval history: She's feeling well this morning. No shortness of breath but states she has not been out of bed yet, usually gets short of breath with activity. No chest pain or palpitations. Review of Systems Constitutional: Constitutional: Denies fever(s) Cardiovascular: Cardiovascular: Reports chest pain, Denies pedal edema, Denies leg edema, Denies lightheadedness, Denies palpitations, Reports dyspnea and Reports dyspnea on exertion Respiratory: Respiratory: Denies chest congestion, Denies cough, Reports dyspnea and Reports dyspnea on exertion Gastrointestinal: Gastrointestinal: Reports abdominal pain (Occ RLQ pain) and Denies hematochezia Genitourinary: Genitourinary: Denies hematuria Musculoskeletal: Musculoskeletal: Reports no additional musculoskeletal complaints and Reports arthralgias Integumentary/Breasts: Skin/Breast: Reports system reviewed and no additional complaints, except as docu Neurologic: Reports system reviewed and no additional complaints, except as documented, Denies behavioral changes and Denies confusion Psychiatric: Psychiatric: Denies behavioral [place]
[2022-05-05] MEDS: WARFARIN (*PBKC) 2.5 MG TABLET PO (17:20)
[2022-05-06] VITALS (9 sets, daily range): BP systolic 82–110; BP diastolic 56–77; PULSE 58–79; RESP 16–24; TEMP 36.4–36.7; O2SAT 93–100
[2022-05-06 05:00] LABS: Basophils Percent Auto 0.8 % (0.2-1.2); Eosinophils Absolute Auto 0.1 K/mm3 (0-0.3); Eosinophils Percent Auto 1.9 % (0-4.4); Hematocrit 41.2 % (37.0-47.0); Hemoglobin 12.7 g/dL (12.0-15.0); Immature Granulocyte Absolute 0.02 K/mm3 (0.00-0.031); Immature Granulocyte Percent A 0.4 % (0-0.5); Lymphocytes Absolute Auto 1.06 K/mm3 (0.9-3.2); Lymphocytes Percent Auto 20.3 % (18.3-44.2); Mean Corpuscular HGB Conc 30.8 g/dl (32-36); Mean Corpuscular Hemoglobin 29.6 pg (26-34); Mean Platelet Volume 10.9 fl (7.4-10.4); Monocytes Absolute Auto 0.5 K/mm3 (0.1-0.6); Monocytes Percent Auto 9.6 % (2.6-8.5); Neutrophils Absolute Auto 3.5 K/mm3 (1.3-6.7); Platelet Count Result 217 k/mm3 (150-375); Red Blood Count 4.29 M/mm3 (4.2-5.4); Red Cell Distribution Width 16.4 % (11.5-14.5); White Blood Count 5.2 K/mm3 (4.5-10.0)
[2022-05-06 05:10] LABS: INR 1.8; Prothrombin Time 20.4 Seconds (11.1-14.7)
[2022-05-06 05:33] LABS: Alanine Aminotransferase 17 U/L (6-35); Albumin Level 3.4 g/dL (3.5-5.1); Alkaline Phosphatase 84 U/L (38-126); Anion Gap 7 mmol/L (8-16); Aspartate Amino Transferase 17 U/L (14-36); Bilirubin,Total 0.7 mg/dL (0.2-1.3); Blood Urea Nitrogen 18 mg/dL (7-17); Calcium 8.1 mg/dL (8.4-10.2); Carbon Dioxide 32 mmol/L (22-30); Chloride 97 mmol/L (98-107); Estimated CRCL calculation 39 ml/min; Estimated Glomerular Filt Rate > 60; Glucose 83 mg/dL (65-110); Magnesium 1.8 mg/dL (1.6-2.3); Potassium 3.5 mmol/L (3.4-5.0); Sodium 136 mmol/L (137-145)
[2022-05-06] MEDS: FUROSEMIDE 40 MG TABLET PO (09:38)
[2022-05-06] MEDS: ASPIRIN 81 MG ENTERIC TABLET PO (09:38)
[2022-05-06] MEDS: DIGOXIN TAB 125 MCG TABLET PO (09:39)
--- NOTE | 2022-05-06 14:43 | PM.IMPN ---
Progress Note: A&P Assessment and Plan (1) Acute exacerbation of congestive heart failure: Code(s): I50.9 - Heart failure, unspecified Status: Acute Assessment and Plan: Continue to diuresis with IV lasix bid Monitor BMP Pt seen by cardiology Pt started on digoxin orally EF 5-10% which is chronic Lasix Switched to oral (2) Heart failure with reduced ejection fraction: Code(s): I50.20 - Unspecified systolic (congestive) heart failure Status: Acute Assessment and Plan: Pt has history of history of coronary disease, CABG, coronary stents recently, an apparent and ejection fraction of 11% (3) Chronic anticoagulation: Code(s): Z79.01 - half-way (current) use of anticoagulants Status: Acute Assessment and Plan: Pt is on warfarin INR lowering and restarted warfarin however INR now subtherapeutic. Will give a dose of 5 mg warfarin tonight (4) Warfarin-induced coagulopathy: Code(s): D68.32 - Hemorrhagic disorder due to extrinsic circulating anticoagulants; T45.515A - Adverse effect of anticoagulants, initial encounter Status: Acute Assessment and Plan: patient warfarin but with supratherapeutic INR on admission (5) Elevated troponin: Code(s): R77.8 - Other specified abnormalities of plasma proteins Status: Acute Assessment and Plan: Trop raise likley related to cHF exacerbation (6) Pulmonary hypertension: Code(s): I27.20 - Pulmonary hypertension, unspecified Status: Acute Assessment and Plan: Secondary to emphysema (7) Peripheral vascular disease: Code(s): I73.9 - Peripheral vascular disease, unspecified Status: Acute Assessment and Plan: 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 On aspirin code status:do not resuscitate on palliative care Known cardiomyopathy with ejection fraction 5-15% July 2021 PT OT evaluated. Remove Nicole. Higher dose of warfarin today Subjective Date/time seen: 05/06/22 14:43 Interval history: HPI:This is an 82-year-old female with coronary artery disease with history of stents and CABG, heart failure with reduced ejection fraction, peripheral vascular disease status post lower extremity stents, and emphysema who presented to the emergency department via private vehicle from home for evaluation of shortness of breath. She has chronic dyspnea on exertion and chronic orthopnea (sleeps on the couch) however over the last several days she has been getting short of breath with minimal activity (adjusting herself in bed) and she has also had intermittent tightness in her chest though she reports that is not similar when she had a previous heart attack. On arrival to the emergency department she was reportedly ?gasping for air? and she was placed on 2 liters nasal cannula for comfort. Chest x-ray showed bilateral infiltrates and/or atelectasis, small pleural effusions, and mild congestive changes. A chest CT showed the same in addition to findings of pulmonary arterial hypertension, emphysema, and cardiomegaly. Her troponin was elevated 0.050 and proBNP was markedly elevated 21,400. She is being admitted in this setting for CHF exacerbation and closer monitoring. At the time my evaluation she is feeling a bit better and she has no current chest discomfort. She denies syncope, presyncope, pleuritic pain, palpitations, nausea, vomiting, sweat
--- NOTE | 2022-05-06 15:43 | PM.PNCARD ---
Progress Note: A&P Assessment and Plan (1) Acute on chronic systolic heart failure: Code(s): I50.23 - Acute on chronic systolic (congestive) heart failure Status: Acute Assessment and Plan: Patient with a known cardiomyopathy, EF she 5-10%, admitted with mild exacerbation of her chronic systolic heart failure. Improved. Looks euvolemic on exam. Shifted to p.o. furosemide 05/05/2022 OK for discharge from a cardiac standpoint. Close follow up with her farmer and grazier, Dr. Browne (2) Elevated troponin: Code(s): R77.8 - Other specified abnormalities of plasma proteins Status: Acute Assessment and Plan: The patient has elevated troponins although these are flat. Her symptoms seem very atypical. No ischemic workup recommended. (3) Paroxysmal atrial fibrillation: Code(s): I48.0 - Paroxysmal atrial fibrillation Status: Acute Assessment and Plan: History of paroxysmal AFib, currently persistent. Chronically anticoagulated with warfarin. Was supratherapeutic on admission. INR 1.8 today, warfarin being resumed. (4) Dilated cardiomyopathy: Code(s): I42.0 - Dilated cardiomyopathy Status: Acute Assessment and Plan: Cardiomyopathy, dilated versus ischemic, EF 5-10% as of July 2021, 10-15% in October 2021. Unable to tolerate usual guideline directed therapy due to low blood pressure. Now on fairly minimal cardiac therapy On discharge, follow-up with her per usual farmer and grazier Dr. Browne. Dr. Browne is encouraging palliative care. Patient is DNR status. (5) Coronary artery disease: Code(s): I25.10 - Atherosclerotic heart disease of [place] coronary artery without angina pectoris Status: Acute Assessment and Plan: History of CAD, and remote CABG Taking aspirin but not on statin therapy as patient desired to reduce number of medications Atypical chest pain, doubt angina (6) LBBB (left bundle branch block): Code(s): I44.7 - Left bundle-branch block, unspecified Status: Acute Assessment and Plan: Chronic LBBB. (7) Chronic anticoagulation: Code(s): Z79.01 - watermaster (current) use of anticoagulants Status: Acute Assessment and Plan: On warfarin for paroxysmal AFib, supratherapeutic INR on admission. Warfarin being resumed. (8) Peripheral vascular disease: Code(s): I73.9 - Peripheral vascular disease, unspecified Status: Acute Assessment and Plan: History of intervention in the past, not an active problem. (9) DNR (do not resuscitate): Code(s): Z66 - Do not resuscitate Status: Acute Assessment and Plan: Patient is a DNR status. The patient's farmer and grazier is encouraging palliative care. Subjective Date/time seen: 05/06/22 15:43 Interval history: Follow-up for cardiomyopathy and acute on chronic systolic CHF, EF 10-15%, history of CAD. Followed by Dr. Browne in [place]. Unable to tolerate usual CHF medications due to low blood pressure. 05/05/2022: She's feeling well this morning. No shortness of breath but states she has not been out of bed yet, usually gets short of breath with activity. No chest pain or palpitations. Changed Lasix to p.o.. Date of service 05/06/2022: Doing well, no new problems. Worked with Physical therapy, felt tired but felt she did well. Blood to be out of bed. Blood Pressure still ranges sometimes in the low 90s to 110 systolic. INR down to 1.8 today, warfarin resumed. Review of Systems Constitutional: Constitutional: Denies fever(s) and Reports weakness Cardiovascular: Cardiovascular: Denies chest pain, Denies pedal edema, Denies lightheadedness and Reports dyspnea Respiratory: Respiratory: Denies chest congestion, Denies dyspnea and Reports dyspnea on exertion Gastrointestinal: Gastrointestinal: Denies abdominal pain and Denies hematochezia Musculoskeletal: Musculoskeletal
[2022-05-06] MEDS: WARFARIN (*PBKC) 5 MG TABLET PO (17:57)
[2022-05-07] VITALS (10 sets, daily range): BP systolic 95–118; BP diastolic 54–65; PULSE 59–115; RESP 12–22; TEMP 36–36.6; O2SAT 96–100
[2022-05-07 05:27] LABS: Basophils Percent Auto 0.7 % (0.2-1.2); Eosinophils Absolute Auto 0.2 K/mm3 (0-0.3); Eosinophils Percent Auto 2.7 % (0-4.4); Hematocrit 40.2 % (37.0-47.0); Hemoglobin 12.5 g/dL (12.0-15.0); Immature Granulocyte Absolute 0.02 K/mm3 (0.00-0.031); Immature Granulocyte Percent A 0.3 % (0-0.5); Lymphocytes Absolute Auto 1.14 K/mm3 (0.9-3.2); Lymphocytes Percent Auto 19.3 % (18.3-44.2); Mean Corpuscular HGB Conc 31.1 g/dl (32-36); Mean Corpuscular Hemoglobin 29.9 pg (26-34); Mean Corpuscular Volume 96.2 fl (80-100); Mean Platelet Volume 10.6 fl (7.4-10.4); Monocytes Absolute Auto 0.6 K/mm3 (0.1-0.6); Monocytes Percent Auto 10.2 % (2.6-8.5); Neutrophils Percent Auto 66.8 % (45.5-73.1); Platelet Count Result 194 k/mm3 (150-375); Red Blood Count 4.18 M/mm3 (4.2-5.4); Red Cell Distribution Width 16.5 % (11.5-14.5); White Blood Count 5.9 K/mm3 (4.5-10.0)
[2022-05-07 05:38] LABS: INR 1.8; Prothrombin Time 20.5 Seconds (11.1-14.7)
[2022-05-07 05:42] LABS: Alanine Aminotransferase 16 U/L (6-35); Albumin Level 3.4 g/dL (3.5-5.1); Alkaline Phosphatase 68 U/L (38-126); Anion Gap 10 mmol/L (8-16); Aspartate Amino Transferase 17 U/L (14-36); Bilirubin,Total 0.7 mg/dL (0.2-1.3); Blood Urea Nitrogen 19 mg/dL (7-17); Calcium 8.3 mg/dL (8.4-10.2); Carbon Dioxide 28 mmol/L (22-30); Chloride 97 mmol/L (98-107); Estimated CRCL calculation 51 ml/min; Estimated Glomerular Filt Rate > 60; Glucose 82 mg/dL (65-110); Magnesium 1.9 mg/dL (1.6-2.3); Potassium 3.7 mmol/L (3.4-5.0); Sodium 135 mmol/L (137-145)
[2022-05-07] MEDS: DIGOXIN TAB 125 MCG TABLET PO (09:57)
[2022-05-07] MEDS: FUROSEMIDE 40 MG TABLET PO (09:57)
[2022-05-07] MEDS: ASPIRIN 81 MG ENTERIC TABLET PO (09:58)
--- NOTE | 2022-05-07 10:06 | P.PNCA_ITS ---
Progress Note: A&P Assessment and Plan (1) Acute on chronic systolic heart failure: Code(s): I50.23 - Acute on chronic systolic (congestive) heart failure Status: Acute Assessment and Plan: Patient with a known cardiomyopathy, EF 5-10%, admitted with mild exacerbation of her chronic systolic heart failure. * Improved. Looks euvolemic on exam. * Shifted to p.o. furosemide 40 mg qd 05/05/2022; her usual home dose was 20 mg daily. * OK for discharge from a cardiac standpoint. Close follow up with her manager group home, Dr. Browne (2) Dilated cardiomyopathy: Code(s): I42.0 - Dilated cardiomyopathy Status: Acute Assessment and Plan: Cardiomyopathy, dilated versus ischemic, EF 5-10% as of July 2021, 10-15% in October 2021. * Unable to tolerate usual guideline directed therapy due to low blood pressure. * Now on fairly minimal cardiac therapy * On discharge, follow-up with her per usual manager group home Dr. Browne. Dr. Browne is encouraging palliative care. * Patient is DNR status. (3) Paroxysmal atrial fibrillation: Code(s): I48.0 - Paroxysmal atrial fibrillation Status: Acute Assessment and Plan: History of paroxysmal AFib, currently persistent. * Chronically anticoagulated with warfarin. Was supratherapeutic on admission. INR 1.8 today, warfarin was resumed. * Rate controlled on digoxin (4) Coronary artery disease: Code(s): I25.10 - Atherosclerotic heart disease of [place] coronary artery without angina pectoris Status: Acute Assessment and Plan: History of CAD, and remote CABG * Taking aspirin but not on statin therapy as patient previously desired to reduce number of medications * Atypical chest pain, doubt angina (5) Chronic anticoagulation: Code(s): Z79.01 - [facility] (current) use of anticoagulants Status: Acute Assessment and Plan: On warfarin for paroxysmal AFib, supratherapeutic INR on admission. * Warfarin being resumed. (6) Elevated troponin: Code(s): R77.8 - Other specified abnormalities of plasma proteins Status: Acute Assessment and Plan: The patient has elevated troponins although these are flat. Her symptoms seem very atypical. No ischemic workup recommended. (7) LBBB (left bundle branch block): Code(s): I44.7 - Left bundle-branch block, unspecified Status: Acute Assessment and Plan: Chronic LBBB. (8) Peripheral vascular disease: Code(s): I73.9 - Peripheral vascular disease, unspecified Status: Acute Assessment and Plan: History of intervention in the past, not an active problem. (9) DNR (do not resuscitate): Code(s): Z66 - Do not resuscitate Status: Acute Assessment and Plan: Patient is a DNR status. The patient's manager group home is encouraging palliative care. Subjective Date/time seen: 05/07/22 10:06 Interval history: Follow-up for cardiomyopathy and acute on chronic systolic CHF, EF 10-15%, history of CAD, paroxysmal atrial fib. Followed by Dr. Hollie chi/ [facility] in [place]. Unable to tolerate usual CHF medications due to low blood pressure. 05/05/2022: She's feeling well this morning. No shortness of breath but states she has not been out of bed yet, usually gets short of breath with activity. No chest pain or palpitations. Changed Lasix to p.o.. Date of service 05/06/2022: Doing well, no new p
--- NOTE | 2022-05-07 10:06 | PM.PNCARD ---
Progress Note: A&P Assessment and Plan (1) Acute on chronic systolic heart failure: Code(s): I50.23 - Acute on chronic systolic (congestive) heart failure Status: Acute Assessment and Plan: Patient with a known cardiomyopathy, EF 5-10%, admitted with mild exacerbation of her chronic systolic heart failure. Improved. Looks euvolemic on exam. Shifted to p.o. furosemide 40 mg qd 05/05/2022; her usual home dose was 20 mg daily. OK for discharge from a cardiac standpoint. Close follow up with her warehouse administrative assistant, Dr. Browne (2) Dilated cardiomyopathy: Code(s): I42.0 - Dilated cardiomyopathy Status: Acute Assessment and Plan: Cardiomyopathy, dilated versus ischemic, EF 5-10% as of July 2021, 10-15% in October 2021. Unable to tolerate usual guideline directed therapy due to low blood pressure. Now on fairly minimal cardiac therapy On discharge, follow-up with her per usual warehouse administrative assistant Dr. Browne. Dr. Browne is encouraging palliative care. Patient is DNR status. (3) Paroxysmal atrial fibrillation: Code(s): I48.0 - Paroxysmal atrial fibrillation Status: Acute Assessment and Plan: History of paroxysmal AFib, currently persistent. Chronically anticoagulated with warfarin. Was supratherapeutic on admission. INR 1.8 today, warfarin was resumed. Rate controlled on digoxin (4) Coronary artery disease: Code(s): I25.10 - Atherosclerotic heart disease of [place] coronary artery without angina pectoris Status: Acute Assessment and Plan: History of CAD, and remote CABG Taking aspirin but not on statin therapy as patient previously desired to reduce number of medications Atypical chest pain, doubt angina (5) Chronic anticoagulation: Code(s): Z79.01 - retirement (current) use of anticoagulants Status: Acute Assessment and Plan: On warfarin for paroxysmal AFib, supratherapeutic INR on admission. Warfarin being resumed. (6) Elevated troponin: Code(s): R77.8 - Other specified abnormalities of plasma proteins Status: Acute Assessment and Plan: The patient has elevated troponins although these are flat. Her symptoms seem very atypical. No ischemic workup recommended. (7) LBBB (left bundle branch block): Code(s): I44.7 - Left bundle-branch block, unspecified Status: Acute Assessment and Plan: Chronic LBBB. (8) Peripheral vascular disease: Code(s): I73.9 - Peripheral vascular disease, unspecified Status: Acute Assessment and Plan: History of intervention in the past, not an active problem. (9) DNR (do not resuscitate): Code(s): Z66 - Do not resuscitate Status: Acute Assessment and Plan: Patient is a DNR status. The patient's warehouse administrative assistant is encouraging palliative care. Subjective Date/time seen: 05/07/22 10:06 Interval history: Follow-up for cardiomyopathy and acute on chronic systolic CHF, EF 10-15%, history of CAD, paroxysmal atrial fib. Followed by Dr. Hollie chi/ [facility] in [place]. Unable to tolerate usual CHF medications due to low blood pressure. 05/05/2022: She's feeling well this morning. No shortness of breath but states she has not been out of bed yet, usually gets short of breath with activity. No chest pain or palpitations. Changed Lasix to p.o.. Date of service 05/06/2022: Doing well, no new problems. Worked with Physical therapy, felt tired but felt she did well. Blood to be out of bed. Blood Pressure still ranges sometimes in the low 90s to 110 systolic. INR down to 1.8 today, warfarin resumed. Date of service 05/07/2022: BP remains low at times, 82/66 up to 110/56 mmHg. Diuresed 300 cc yesterday, on p.o. Lasix. Walked 65 ft with physical therapy today with a walker, slight shortness of breath at the end of the walk. INR 1.8 after warfarin resumed yesterday with a loading dose. Tele:
--- NOTE | 2022-05-07 16:44 | PM.IMPN ---
Progress Note: A&P Assessment and Plan (1) Acute exacerbation of congestive heart failure: Code(s): I50.9 - Heart failure, unspecified Status: Acute Assessment and Plan: Continue to diuresis with IV lasix bid Monitor BMP Pt seen by cardiology Pt started on digoxin orally EF 5-10% which is chronic Lasix Switched to oral (2) Heart failure with reduced ejection fraction: Code(s): I50.20 - Unspecified systolic (congestive) heart failure Status: Acute Assessment and Plan: Pt has history of history of coronary disease, CABG, coronary stents recently, an apparent and ejection fraction of 11% (3) Chronic anticoagulation: Code(s): Z79.01 - custodial (current) use of anticoagulants Status: Acute Assessment and Plan: Pt is on warfarin INR lowering and restarted warfarin however INR now subtherapeutic. restarted on higher dose of warfarin 5 mg. INR still at 1.8. Will continue 5 mg tonight again (4) Warfarin-induced coagulopathy: Code(s): D68.32 - Hemorrhagic disorder due to extrinsic circulating anticoagulants; T45.515A - Adverse effect of anticoagulants, initial encounter Status: Acute Assessment and Plan: patient warfarin but with supratherapeutic INR on admission (5) Elevated troponin: Code(s): R77.8 - Other specified abnormalities of plasma proteins Status: Acute Assessment and Plan: Trop raise likley related to cHF exacerbation (6) Pulmonary hypertension: Code(s): I27.20 - Pulmonary hypertension, unspecified Status: Acute Assessment and Plan: Secondary to emphysema (7) Peripheral vascular disease: Code(s): I73.9 - Peripheral vascular disease, unspecified Status: Acute Assessment and Plan: Secondary to long-term smoking (8) Emphysema lung: Code(s): J43.9 - Emphysema, unspecified Status: Acute Assessment and Plan: 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 On aspirin code status:do not resuscitate on palliative care Known cardiomyopathy with ejection fraction 5-15% July 2021 PT OT evaluated. Nicole removed and tolerated with. Higher dose of warfarin again today Subjective Date/time seen: 05/07/22 16:44 Interval history: HPI:This is an 82-year-old female with coronary artery disease with history of stents and CABG, heart failure with reduced ejection fraction, peripheral vascular disease status post lower extremity stents, and emphysema who presented to the emergency department via private vehicle from home for evaluation of shortness of breath. She has chronic dyspnea on exertion and chronic orthopnea (sleeps on the couch) however over the last several days she has been getting short of breath with minimal activity (adjusting herself in bed) and she has also had intermittent tightness in her chest though she reports that is not similar when she had a previous heart attack. On arrival to the emergency department she was reportedly ?gasping for air? and she was placed on 2 liters nasal cannula for comfort. Chest x-ray showed bilateral infiltrates and/or atelectasis, small pleural effusions, and mild congestive changes. A chest CT showed the same in addition to findings of pulmonary arterial hypertension, emphysema, and cardiomegaly. Her troponin was elevated 0.050 and proBNP was markedly elevated 21,400. She is being admitted in this setting for CHF exacerbation and closer monitoring. At the time my evaluation she is feeling a bit better and she has no current chest discomfort. S
[2022-05-07] MEDS: WARFARIN (*PBKC) 5 MG TABLET PO (18:24)
--- NOTE | 2022-05-07 19:49 | PC.NURSE ---
Patient has no IV access. Discussed no access with Dr Baker and he advice to not place IV at this time.
[2022-05-08] VITALS (10 sets, daily range): BP systolic 94–104; BP diastolic 49–56; PULSE 60–96; RESP 20–22; TEMP 36.4–37.1; O2SAT 87–100
[2022-05-08 05:37] LABS: Basophils Absolute Auto 0.1 K/mm3 (0.0-0.1); Eosinophils Absolute Auto 0.1 K/mm3 (0-0.3); Eosinophils Percent Auto 2.7 % (0-4.4); Hematocrit 40.8 % (37.0-47.0); Hemoglobin 12.5 g/dL (12.0-15.0); Immature Granulocyte Absolute 0.02 K/mm3 (0.00-0.031); Immature Granulocyte Percent A 0.4 % (0-0.5); Lymphocytes Absolute Auto 1.04 K/mm3 (0.9-3.2); Mean Corpuscular HGB Conc 30.6 g/dl (32-36); Mean Corpuscular Volume 97.8 fl (80-100); Monocytes Absolute Auto 0.5 K/mm3 (0.1-0.6); Monocytes Percent Auto 10.2 % (2.6-8.5); Neutrophils Absolute Auto 3.4 K/mm3 (1.3-6.7); Neutrophils Percent Auto 65.7 % (45.5-73.1); Platelet Count Result 185 k/mm3 (150-375); Red Blood Count 4.17 M/mm3 (4.2-5.4); Red Cell Distribution Width 16.4 % (11.5-14.5); White Blood Count 5.2 K/mm3 (4.5-10.0)
[2022-05-08 05:42] LABS: Prothrombin Time 21.9 Seconds (11.1-14.7)
[2022-05-08 05:49] LABS: Alanine Aminotransferase 18 U/L (6-35); Albumin Level 3.5 g/dL (3.5-5.1); Alkaline Phosphatase 69 U/L (38-126); Anion Gap 10 mmol/L (8-16); Aspartate Amino Transferase 20 U/L (14-36); Bilirubin,Total 0.7 mg/dL (0.2-1.3); Blood Urea Nitrogen 18 mg/dL (7-17); Calcium 8.4 mg/dL (8.4-10.2); Carbon Dioxide 30 mmol/L (22-30); Chloride 97 mmol/L (98-107); Estimated CRCL calculation 44 ml/min; Estimated Glomerular Filt Rate > 60; Glucose 75 mg/dL (65-110); Potassium 3.6 mmol/L (3.4-5.0); Sodium 137 mmol/L (137-145)
[2022-05-08] MEDS: ASPIRIN 81 MG ENTERIC TABLET PO (08:57)
[2022-05-08] MEDS: FUROSEMIDE 40 MG TABLET PO (08:57)
[2022-05-08] MEDS: DIGOXIN TAB 125 MCG TABLET PO (08:57)
--- NOTE | 2022-05-08 10:29 | PCRCNOTE ---
Home O2 eval completed. Patient requires room air with rest and 1lpm with activity. Patient does not know where she will be going upon discharge. O2 will be set up after decision is made. RN to notify us.
--- NOTE | 2022-05-08 10:38 | HOMEO2EVAL ---
Evaluation was performed at [facility] Home Oxygen Evaluation RC: Home Oxygen (O2) Evaluation Start: 05/07/22 09:19 Freq: ONCE Status: Active Protocol: RPE Activity Type Activity Date Activity User E-sign Co-sign Detail Recorded Client Recorded Date Recorded By Document 05/08/22 10:05 [facility] [email or web address] 05/08/22 10:29 PK Document 05/08/22 10:10 PK [email or web address] 05/08/22 10:29 PK Document 05/08/22 10:12 [facility] [email or web address] 05/08/22 10:29 [facility] Document 05/08/22 10:25 [facility] [email or web address] 05/08/22 10:29 [facility] 05/08/22 05/08/22 05/08/22 10:05 10:10 10:12 Home O2 Evaluation Test Phase Resting Exercise Exercise Oxygen Delivery Room Air Room Air Nasal Cannula Oxygen Flow Rate (L/min) 1 Pulse Oximetry (90-100 %) 96 87 L 93 Pulse Rate (60-100 beats/min) 75 88 96 Activity Tolerance Good Good Ambulation Distance (feet) 200 Ambulation Distance (meters) 60.95 Home Oxygen Evaluation Comments Treatment Charges O2 Evaluation - Inpatient 05/08/22 10:25 Home O2 Evaluation Test Phase Resting Oxygen Delivery Room Air Oxygen Flow Rate (L/min) Pulse Oximetry (90-100 %) 95 Pulse Rate (60-100 beats/min) 89 Activity Tolerance Ambulation Distance (feet) Ambulation Distance (meters) Home Oxygen Evaluation Comments Patient Home O2 requirements. Room air with rest and 1 lpm with activity. RN notified. Treatment Charges
--- NOTE | 2022-05-08 11:24 | PCNFU ---
Nutrition Follow-Up Complete: Underweight related to suboptimal po intake as evidenced by a low BMI of 17.3, pt self reported weight loss x 6 months. PO intake 75% of meals and supplements Goal: goal not met, consumes an average of 67% of meals. continue original goal. Pt current nutrition is Heart healthy diet. Nutrition recommendation: continue original goal, order extra foods to snack in between meals Last recorded weight is 50.3 kg. Bowel Motility: last BM 05/07/22 Labs Reviewed:Cl: 97, BUN: 18 Meds Noted:lasix, zofran, coumadin Skin:WNL Additional Notes: Pt says her appetite is usually good. She does not like the food here, so her intake has been lower than usual. Monitor intake, wt, labs. Follow up in 7 days.
--- NOTE | 2022-05-08 11:37 | PCRCNOTE ---
Home o2 evaluation completed. Pt. requires 1lpm with activity. Pt. requested [facility] for her o2 setup, info faxed. [facility] to deliver tank room.
--- NOTE | 2022-05-08 12:38 | PM.DS ---
DS: Admitting Diagnosis Discharge Date 05/08/2022 Admitting Diagnosis shortness of breath DS: Discharge Diagnosis Discharge Diagnosis (1) Acute exacerbation of congestive heart failure: Code(s): I50.9 - Heart failure, unspecified Status: Acute (2) Heart failure with reduced ejection fraction: Code(s): I50.20 - Unspecified systolic (congestive) heart failure Status: Acute (3) Chronic anticoagulation: Code(s): Z79.01 - retirement (current) use of anticoagulants Status: Acute (4) Warfarin-induced coagulopathy: Code(s): D68.32 - Hemorrhagic disorder due to extrinsic circulating anticoagulants; T45.515A - Adverse effect of anticoagulants, initial encounter Status: Acute (5) Elevated troponin: Code(s): R77.8 - Other specified abnormalities of plasma proteins Status: Acute (6) Pulmonary hypertension: Code(s): I27.20 - Pulmonary hypertension, unspecified Status: Acute (7) Peripheral vascular disease: Code(s): I73.9 - Peripheral vascular disease, unspecified Status: Acute (8) Emphysema lung: Code(s): J43.9 - Emphysema, unspecified Status: Acute (9) Coronary artery disease: Code(s): I25.10 - Atherosclerotic heart disease of [place] coronary artery without angina pectoris Status: Acute (10) Hypertension: Code(s): I10 - Essential (primary) hypertension Status: Acute DS: Summary Hospital Course Reason for hospitalization: This is an 82-year-old female with coronary artery disease with history of stents and CABG, heart failure with reduced ejection fraction, peripheral vascular disease status post lower extremity stents, and emphysema who presented to the emergency department via private vehicle from home for evaluation of shortness of breath. She has chronic dyspnea on exertion and chronic orthopnea (sleeps on the couch) however over the last several days she has been getting short of breath with minimal activity (adjusting herself in bed) and she has also had intermittent tightness in her chest though she reports that is not similar when she had a previous heart attack. On arrival to the emergency department she was reportedly ?gasping for air? and she was placed on 2 liters nasal cannula for comfort. Chest x-ray showed bilateral infiltrates and/or atelectasis, small pleural effusions, and mild congestive changes. A chest CT showed the same in addition to findings of pulmonary arterial hypertension, emphysema, and cardiomegaly. Her troponin was elevated 0.050 and proBNP was markedly elevated 21,400. She is being admitted in this setting for CHF exacerbation and closer monitoring. At the time my evaluation she is feeling a bit better and she has no current chest discomfort. She denies syncope, presyncope, pleuritic pain, palpitations, nausea, vomiting, sweats, cough, sinus congestion, sore throat, and lower extremity edema. She denies sick contacts. Hospital Course: # acute exacerbation of systolic congestive heart failure: Continue to diuresis with IV lasix bid Monitor BMP Pt seen by cardiology Pt started on digoxin orally EF 5-10% which is chronic ?Lasix Switched to oral 40 mg daily her usual home doses was 20 mg daily . Follow-up with usual drivers license examiner who has been recur encouraging palliative care. This is also been discuss throughout the hospital stay. Unable to tolerate usual guideline directed therapy due to low blood pressure. She was mildly hypoxic because of this during the hospital stay and home oxygen evaluation was done prior to discharge and required oxygen upon ambulation. Oxygen supplementation was arranged at the time of discharge # Heart failure with reduced ejection fraction: Pt has history of history of coronary disease, CABG, coronary stents recently, an apparent and ejection fraction of 11% # chronic long-term anticoagulation: Pt is on warfarin INR lowering and restarted warfarin however INR now
== END 2022-05-08 15:18 | disposition home or self-care (01) | DRG 291 ==
LOC: ANHED 13:08 → ANHIMU 17:27
PROVIDERS: Family Medicine; Physician Assistant; Admitting Provider Family Medicine; Emergency Provider Emergency Medicine; Visit Provider Internal Medicine
DX: I11.0 Hypertensive heart disease with heart failure (principal); I50.23 Acute on chronic systolic (congestive) heart failure; I25.810 Atherosclerosis of coronary artery bypass graft(s) without angina pectoris; I25.10 Atherosclerotic heart disease of native coronary artery without angina pectoris; I48.0 Paroxysmal atrial fibrillation; I42.0 Dilated cardiomyopathy; I27.21 Secondary pulmonary arterial hypertension; I44.7 Left bundle-branch block, unspecified; I73.9 Peripheral vascular disease, unspecified; J43.9 Emphysema, unspecified; E78.5 Hyperlipidemia, unspecified; R77.8 Other specified abnormalities of plasma proteins; R79.1 Abnormal coagulation profile; T45.515A Adverse effect of anticoagulants, initial encounter; Z66 Do not resuscitate; Z20.822 Contact with and (suspected) exposure to COVID-19; Z95.1 Presence of aortocoronary bypass graft; Z95.5 Presence of coronary angioplasty implant and graft; Z79.01 Long term (current) use of anticoagulants; Z87.891 Personal history of nicotine dependence
CPT/HCPCS: 36415; 36600; 51702; 71045; 71250; 80048; 80053; 80162; 82805; 83735; 83880; 84484; 85025; 85027; 85610; 85730; 93005; 94618; 96374; 97110; 97116; 97162; 97165; 97530; 97535; 99285; A9270; C9803; J1940; U0003; U0005

== ENCOUNTER 2022-05-15 12:57 | Outpatient (NON) | payer MEDICARE, SELFPAY ==
[2022-05-15 14:58] LABS: Anion Gap 14 mmol/L (8-16); Blood Urea Nitrogen 21 mg/dL (7-17); Calcium 8.5 mg/dL (8.4-10.2); Carbon Dioxide 28 mmol/L (22-30); Chloride 93 mmol/L (98-107); Estimated Glomerular Filt Rate > 60; Glucose 114 mg/dL (65-110); Sodium 135 mmol/L (137-145)
== END 2022-05-15 12:58 | disposition home or self-care (01) ==
PROVIDERS: Visit Provider Internal Medicine
DX: I25.10 Atherosclerotic heart disease of native coronary artery without angina pectoris (principal); I11.0 Hypertensive heart disease with heart failure; I50.23 Acute on chronic systolic (congestive) heart failure; I27.20 Pulmonary hypertension, unspecified
CPT/HCPCS: 80048

== ENCOUNTER 2022-05-16 21:50 | Observation (INO) | payer MEDICARE, SELFPAY ==
--- NOTE | ~2022-05-16 | XR_ITS ---
EXAMINATION: XR chest 1V portable Exam Date/Time: 05/16/2022 22:15 CDT HISTORY: SOB x today. pt discharged Sunday with prior pneumonia Comparison: Chest x-ray and CT 05/02/2022. RESULT: Lines, tubes, and devices: Intact sternotomy wires. Mediastinal clips.. Lungs and pleura: Diffuse reticular opacities. Subsegmental and graded bilateral lower lung opacitie s with moderate bilateral costophrenic angle blunting. Cardiomediastinal silhouette: Stable cardiomegaly. Other: No acute osseous or upper abdominal finding. IMPRESSION: Interstitial pulmonary edema with moderate bilateral effusions and bibasilar atelectasis/consolidatio n. Reviewed, dictated and finalized at location K. IMPRESSION: Interstitial pulmonary edema with moderate bilateral effusions and bibasilar at electasis/consolidation.
[2022-05-16 22:03] VITALS: BP 124/82; PULSE 83; RESP 32; TEMP 35.9; O2SAT 99
--- NOTE | 2022-05-16 22:03 | ECG_ITS ---
Measurements Intervals [place] Rate: 75 P: ND: 0 QRS: -83 QRSD: 153 T: 130 QT: 404 QTc: 453 Interpretive Statements ATRIAL FIBRILLATION LEFT AXIS DEVIATION LEFT BUNDLE-BRANCH BLOCK ABNORMAL ECG COMPARED TO ECG 05/02/2022 10:50:26 NO SIGNIFICANT CHANGES Electronically Signed On 05-17-2022 14:59:09 CDT by Kieran Fuentes M.D.
[2022-05-16 22:29] LABS: Basophils Percent Auto 0.3 % (0.2-1.2); Hematocrit 42.8 % (37.0-47.0); Hemoglobin 13.3 g/dL (12.0-15.0); Immature Granulocyte Absolute 0.04 K/mm3 (0.00-0.031); Immature Granulocyte Percent A 0.5 % (0-0.5); Lymphocytes Absolute Auto 0.81 K/mm3 (0.9-3.2); Lymphocytes Percent Auto 10.5 % (18.3-44.2); Mean Corpuscular HGB Conc 31.1 g/dl (32-36); Mean Corpuscular Hemoglobin 30.8 pg (26-34); Mean Corpuscular Volume 99.1 fl (80-100); Mean Platelet Volume 10.9 fl (7.4-10.4); Monocytes Absolute Auto 0.7 K/mm3 (0.1-0.6); Monocytes Percent Auto 8.4 % (2.6-8.5); Neutrophils Absolute Auto 6.2 K/mm3 (1.3-6.7); Neutrophils Percent Auto 80.3 % (45.5-73.1); Platelet Count Result 238 k/mm3 (150-375); Red Blood Count 4.32 M/mm3 (4.2-5.4); Red Cell Distribution Width 18.3 % (11.5-14.5); White Blood Count 7.7 K/mm3 (4.5-10.0)
--- NOTE | 2022-05-16 22:29 | ED.GENADULT ---
HPI - General Adult General Chief complaint: Shortness of Breath/Dyspnea Stated complaint: DIFFICULTY IN BREATHING Time Seen by Provider: 05/16/22 22:07 History of Present Illness HPI narrative: 10-year-old female with a history of congestive heart failure, dilated cardiomyopathy, pulm hypertension, paroxysmal atrial fibrillation, with a EF of approximately 5 to 10% presented emergency department for evaluation of worsening shortness of breath. Patient was just discharged from the hospital on Sunday. Patient was discharged on 2 L of oxygen to home. Family states that when she was discharged patient was able to be more active but over the last few days she has had worsening shortness of breath and has had decreased energy. Patient at this point is only transferring from her bed to the bedside commode. Patient is DNI DNR. Cardiology recommended palliative care. At this time family is considering hospice. Related Data Home Medications Medication Instructions Recorded Confirmed aspirin 81 mg tablet,delayed 81 mg PO DAILY 05/02/22 05/17/22 release digoxin 125 mcg (0.125 mg) tablet 125 mcg PO DAILY 05/02/22 05/17/22 warfarin 2.5 mg tablet 2.5 mg PO DAILY 05/02/22 05/17/22 Allergies Allergy/AdvReac Type Severity Reaction Status Date / Time morphine Allergy Severe RASH / Verified 05/02/22 10:47 SWELLING Review of Systems Review of Systems: CONSTITUTIONAL: Increased generalized fatigue EYES: Denies visual changes, redness, or discharge. ENT: Denies rhinorrhea, congestion, sore throat, or otalgia. CARDIOVASCULAR: Worsening edema and exertional shortness of breath RESPIRATORY: Denies cough or dyspnea. GASTROINTESTINAL: Denies abdominal pain, nausea, vomiting, or diarrhea. GENITOURINARY: Denies dysuria or hematuria. SKIN: Denies rash or itching. MUSCULOSKELETAL: Denies back pain, joint pain, or myalgia. NEUROLOGIC: Denies headache, numbness, or weakness. [facility] Past Medical History Medical History Acute on chronic systolic heart failure Chronic anticoagulation Patient is uncertain as to why she is on warfarin. Coronary artery disease Followed by Pedrito Caldwell at [facility]. Dilated cardiomyopathy EF 5-10% as of July 2021, followed by Dr. Browne in [place]. DNR (do not resuscitate) Dyslipidemia Emphysema lung Former smoker Heart failure with reduced ejection fraction Hypertension Paroxysmal atrial fibrillation Peripheral vascular disease Pulmonary hypertension Surgical History Surgical History History of coronary artery bypass graft History of coronary artery stent placement History of open reduction and internal fixation (ORIF) procedure Right femur. History of tonsillectomy Family History Family History Other Heart disease Hypertension Social History Social History Social History: Surrogate medical decision maker: Sherry Flower or Rishabh De Los Santos, children. Code status: Do not resuscitate. Smoking packs per day: 1 Smoking cigarettes per day: 20.0 Years smoked: 50 Smoking pack-years: 50.00 Smoking status: Former smoker Additional smoking assessment comments: Quit in June 2021. Alcohol intake: never Substance use: never Additional living arrangements comments: Currently staying with a friend in the area, originally from [place]. Spiritual care concerns: No Exam Narrative: APPEARANCE: Well appearing, no pain, no distress, well-nourished. HEAD: normocephalic, atraumatic. EYES: PERRLA/EOMI, conjunctivae clear. NOSE: Normal no drainage THROAT: Pharynx clear, no exudate. NECK: Supple. No adenopathy, no masses. RESPIRATORY: Airway patent, respirations nonlabored. Tachypneic CARDIOVASCULAR: A. fib without RVR ABDOMINAL: Soft, nonte
[2022-05-16 22:30] VITALS: O2SAT 100
[2022-05-16 22:31] VITALS: BP 109/74; PULSE 78; RESP 25; O2SAT 100
[2022-05-16 22:45] LABS: Alanine Aminotransferase 43 U/L (6-35); Alkaline Phosphatase 106 U/L (38-126); Anion Gap 12 mmol/L (8-16); Aspartate Amino Transferase 58 U/L (14-36); Bilirubin,Total 1.9 mg/dL (0.2-1.3); Blood Urea Nitrogen 29 mg/dL (7-17); Calcium 8.7 mg/dL (8.4-10.2); Carbon Dioxide 23 mmol/L (22-30); Chloride 100 mmol/L (98-107); Estimated CRCL calculation 39 ml/min; Estimated Glomerular Filt Rate > 60; Glucose 180 mg/dL (65-110); Potassium 5.2 mmol/L (3.4-5.0); Sodium 135 mmol/L (137-145)
[2022-05-16 22:53] LABS: NT Pro B Type Natriuretic Pept 33000 pg/mL (5-100)
[2022-05-16 23:20] VITALS: PULSE 73; PULSE 76; RESP 30; O2SAT 100
[2022-05-16 23:38] LABS: INR 2.2; Prothrombin Time 23.5 Seconds (11.1-14.7)
[2022-05-16 23:39] LABS: Partial Thromboplastin Time 42.8 SECONDS (22.3-36.8)
[2022-05-17] VITALS (14 sets, daily range): BP systolic 92–114; BP diastolic 66–71; PULSE 73–92; RESP 16–24; TEMP 35.8–36.8; O2SAT 94–100; BMI 18.3
[2022-05-17] MEDS: FUROSEMIDE INJ 40 MG/4 ML VIAL (00:14)
--- NOTE | 2022-05-17 00:47 | ADMGEN ---
This patient, Aline Calle, was admitted to Medical Room 250-01. Patient/family oriented to hospital policies and general routines including ID bracelet, bed and alarms, visiting hours, pain management, procedures, bathroom and other care routines, personal items, smoking policy, room service/diet, and visiting hours. Information on how to activate the Rapid Response Team has been discussed. Patient/Family are encouraged to report perceived risks to care and to ask questions if they do not understand what they are told or what they should do.
--- NOTE | 2022-05-17 09:45 | PM.IMHP ---
H&P: HPI History of Present Illness Date/Time: 05/17/22 0945 Chief Complaint: Dyspnea Narrative: Patient is an 82-year-old female with a past medical history of heart failure, dilated cardiomyopathy, dyslipidemia, hypertension who presented to the ED with worsening shortness of breath. Patient stated that she is not a very good historian however I was able to get a few bits of pieces out of her. Patient stated that she left here and was doing okay however recently she has been lying around could not do anything. She stated that she has been very tired and when she would get up that she would breathe however she just could not catch up. Even with talking she does appear to be very short of breath and she does have to stop to get air before continuing conversation. She denies having a cough and says it happens every once a while but not often. She does have increased wheezes. She a denies any chest pain, nausea, vomiting, diarrhea, constipation is. She stated that her visual changes have been better. She also stated that when she gets extremely anxious or is put in a small area she feels like she is going to throw up. She does have some lightheadedness however she stated that as long she is not done she does not have issues. She stated that her lightheadedness is mostly when she stands. She denies any pain with inspiration. She does describe bilateral CVA pain and also states that she has epigastric pain. She did have her tray in front of her however she stated that she was unable to eat which is mostly related to her breathing. She also stated that she feels like she has no energy and relates her no energy to not being able to eat well. Getting up and down from the commode is a lot of work for her and she has a hard time catching her breath. Echo from December does show patient has a 5% EF. BNP was 39136. Blood pressure is a little labile and on the softer side. Currently the patient is lying in bed she does appear to be comfortable. She was asking for some kind of a cushion which sounds like a Roho cushion that she has at home due to the lack of meat on her Buttocks. Patient daughter did come in and I did talk to the patient about further plans of hospice. The daughter did agree to hospice and stated that she would like to talk to somebody about this. The patient herself also stated that she was just tired and would like to be comfortable. Patient is signed hospice however will not he until tomorrow. Patient is being admitted to the hospitalist service under observation Review of Systems Review of Systems: All systems reviewed & are unremarkable except as noted in HPI and below PMFSH Past Medical History Medical History Acute on chronic systolic heart failure Chronic anticoagulation Patient is uncertain as to why she is on warfarin. Coronary artery disease Followed by Pedrito Caldwell at [facility]. Dilated cardiomyopathy EF 5-10% as of July 2021, followed by Dr. Browne in [place]. DNR (do not resuscitate) Dyslipidemia Emphysema lung Former smoker Heart failure with reduced ejection fraction Hypertension Paroxysmal atrial fibrillation Peripheral vascular disease Pulmonary hypertension Surgical History Surgical History History of coronary artery bypass graft History of coronary artery stent placement History of open reduction and internal fixation (ORIF) procedure Right femur. History of tonsillectomy Family History Family History Other Heart disease Hypertension Social History Social History Social History: Surrogate medical decision maker: Sherry Flower or Rishabh De Los Santos, children. Code status: Do not resuscitate. Smoking packs per day: 1 Smoking cigarettes per day: 20
[2022-05-17] MEDS: HYDROcodone/acetaminophen (*CRX) 5-325 MG TABLET 1 TAB PO (10:21)
--- NOTE | 2022-05-17 13:41 | PC.NURSE ---
On 05/17/22, the student, [Nona Douglas], provided care and completed [facility] documentation on this patient. I have reviewed the student's documentation and agree with the findings.
[2022-05-18] VITALS: PULSE 71
--- NOTE | 2022-05-18 01:18 | PC.NURSE ---
Pt became very anxious when informed lasix ordered for 2100. Pt states she had just gotten comfortable to and was distressed at the idea of being awake through the night r/t diuretics. Pt has intentions of utilizing hospice care, risks and benefits of refusing lasix were discussed with pt. Pt requested that the provider be informed of her desire to refuse evening lasix dose. Rebecca Kohli notified and 2100 dose held to help provide greater comfort to patient.
[2022-05-18 04:00] VITALS: PULSE 75
[2022-05-18 05:35] LABS: Basophils Percent Auto 0.4 % (0.2-1.2); Eosinophils Absolute Auto 0.1 K/mm3 (0-0.3); Eosinophils Percent Auto 0.9 % (0-4.4); Hematocrit 43.3 % (37.0-47.0); Immature Granulocyte Absolute 0.03 K/mm3 (0.00-0.031); Immature Granulocyte Percent A 0.4 % (0-0.5); Lymphocytes Absolute Auto 1.32 K/mm3 (0.9-3.2); Lymphocytes Percent Auto 16.5 % (18.3-44.2); Mean Platelet Volume 11.2 fl (7.4-10.4); Monocytes Absolute Auto 0.8 K/mm3 (0.1-0.6); Monocytes Percent Auto 10.1 % (2.6-8.5); Neutrophils Absolute Auto 5.8 K/mm3 (1.3-6.7); Neutrophils Percent Auto 71.7 % (45.5-73.1); Platelet Count Result 202 k/mm3 (150-375); Red Blood Count 4.33 M/mm3 (4.2-5.4); Red Cell Distribution Width 18.7 % (11.5-14.5)
[2022-05-18 05:39] LABS: Alanine Aminotransferase 38 U/L (6-35); Albumin Level 3.7 g/dL (3.5-5.1); Alkaline Phosphatase 92 U/L (38-126); Anion Gap 10 mmol/L (8-16); Aspartate Amino Transferase 31 U/L (14-36); Bilirubin,Total 0.9 mg/dL (0.2-1.3); Blood Urea Nitrogen 33 mg/dL (7-17); Carbon Dioxide 32 mmol/L (22-30); Chloride 95 mmol/L (98-107); Estimated CRCL calculation 32 ml/min; Estimated Glomerular Filt Rate 53; Glucose 93 mg/dL (65-110); Magnesium 2.3 mg/dL (1.6-2.3); Potassium 5.7 mmol/L (3.4-5.0); Sodium 137 mmol/L (137-145)
[2022-05-18 05:50] VITALS: BP 103/60; PULSE 80; RESP 20; TEMP 36.6; O2SAT 95
[2022-05-18 08:00] VITALS: PULSE 88
[2022-05-18] MEDS: DIGOXIN TAB 125 MCG TABLET PO (08:02)
[2022-05-18] MEDS: ASPIRIN 81 MG ENTERIC TABLET PO (08:03)
[2022-05-18] MEDS: FUROSEMIDE INJ 40 MG/4 ML VIAL IV PUSH (08:34)
[2022-05-18 08:36] LABS: Hepatitis B Surface Antigen Negative (Negative)
[2022-05-18 08:43] LABS: HAV RESULT Negative (Negative); Hepatitis B Core IgM Result Negative (Negative)
[2022-05-18 08:54] LABS: Hepatitis C Virus Antibody Negative (Negative)
--- NOTE | 2022-05-18 10:30 | P.DS_ITS ---
DS: Admitting Diagnosis Discharge Date 05/18/22 1030 Admitting Diagnosis Acute exacerbation of chronic heart failure DS: Discharge Diagnosis Discharge Diagnosis (1) Paroxysmal atrial fibrillation: Code(s): I48.0 - Paroxysmal atrial fibrillation Status: Acute Assessment and Plan: * EKG showed a. fib rate of 75 * Continue home warfarin 2.5mg PO daily * Trend INR, currently 2.2 * Adjust warfarin to maintain a goal INR of 2-3 (2) Dilated cardiomyopathy: Code(s): I42.0 - Dilated cardiomyopathy Status: Acute Assessment and Plan: * Appears EF is 5-10% * Hospice care has been signed up * Consider cardiology consult * Trend In and Outs * Daily weights * BNP 50786 (3) Acute exacerbation of congestive heart failure: Code(s): I50.9 - Heart failure, unspecified Status: Acute Assessment and Plan: * Appears to be an acute exacerbation of chronic systolic heart failure * BNP 65183 * Strict I&Os * Trend daily weights * Echo shows EF of 5-10%, unknown diastolic dysfunction from October of 2021 * Patient follow with Dr. Browne * Cardiology encouraging palliative care (4) Acute and chronic respiratory failure: Code(s): J96.20 - Acute and chronic respiratory failure, unspecified whether with hypoxia or hypercapnia Status: Acute Assessment and Plan: * Upon arrival patient noted to be very tachypneic at 32 * O2 saturation is stable * Related to fluid overload * BNP 24063 * Unable to move around, only able to transfer from bed to commode * Unable to complete sentences, tripoding * Worse with activity * Trend I&Os * Lasix 40mg Q12H (5) Transaminitis: Code(s): R74.01 - Elevation of levels of liver transaminase levels Status: Acute Assessment and Plan: * Current AST/ALT 58/43 * Hep panel in the am * Trend labs * Adjust therapy as indicated (6) Hospice care: Code(s): Z51.5 - Encounter for palliative care Status: Acute Assessment and Plan: * Will be able to have hospice at home tomorrow * Patient and daughter agree to [facility] hospice tomorrow DS: Summary Hospital Course Hospital Course: Patient is an 82-year-old female with a past medical history of heart failure, dilated cardiomyopathy, dyslipidemia, hypertension who presented to the ED with worsening shortness of breath.? [place] [address]. Patient was started on IV Lasix b.i.d.. Patient was also experiencing acute on chronic respiratory failure without being able to complete sentences tripoding and inability eat. Patient decided that she would like to be comfortable and explored the option of hospice. Her daughters were present and decided to put her mother on hospice with [facility]. Potassium is little high today however is stable at this point time. Vital signs and labs are stable. Patient does have a known dilated cardiomyopathy. EF is 5-10%. Patient stated that she is tired and really is unable to move around or do things that she would normally do. Patient is being discharged home on hospice. Family is aware, and all affairs seem to be in order. Status at Discharge Functional status at discharge: uses cane/walker Overall status at discharge: patient is progressing back to baseline Time Spent with Patient Time attestation: Total time spent providing and/or coordinating discharge services: 37
--- NOTE | 2022-05-18 10:30 | PM.DS ---
DS: Admitting Diagnosis Discharge Date 05/18/22 1030 Admitting Diagnosis Acute exacerbation of chronic heart failure DS: Discharge Diagnosis Discharge Diagnosis (1) Paroxysmal atrial fibrillation: Code(s): I48.0 - Paroxysmal atrial fibrillation Status: Acute Assessment and Plan: EKG showed a. fib rate of 75 Continue home warfarin 2.5mg PO daily Trend INR, currently 2.2 Adjust warfarin to maintain a goal INR of 2-3 (2) Dilated cardiomyopathy: Code(s): I42.0 - Dilated cardiomyopathy Status: Acute Assessment and Plan: Appears EF is 5-10% Hospice care has been signed up Consider cardiology consult Trend In and Outs Daily weights BNP 56167 (3) Acute exacerbation of congestive heart failure: Code(s): I50.9 - Heart failure, unspecified Status: Acute Assessment and Plan: Appears to be an acute exacerbation of chronic systolic heart failure BNP 48669 Strict I&Os Trend daily weights Echo shows EF of 5-10%, unknown diastolic dysfunction from October of [address] Browne Cardiology encouraging palliative care (4) Acute and chronic respiratory failure: Code(s): J96.20 - Acute and chronic respiratory failure, unspecified whether with hypoxia or hypercapnia Status: Acute Assessment and Plan: Upon arrival patient noted to be very tachypneic at 32 O2 saturation is stable Related to fluid overload BNP 77306 Unable to move around, only able to transfer from bed to commode Unable to complete sentences, tripoding Worse with activity Trend I&Os Lasix 40mg Q12H (5) Transaminitis: Code(s): R74.01 - Elevation of levels of liver transaminase levels Status: Acute Assessment and Plan: Current AST/ALT 58/43 Hep panel in the am Trend labs Adjust therapy as indicated (6) Hospice care: Code(s): Z51.5 - Encounter for palliative care Status: Acute Assessment and Plan: Will be able to have hospice at home tomorrow Patient and daughter agree to [facility] hospice tomorrow DS: Summary Hospital Course Hospital Course: Patient is an 82-year-old female with a past medical history of heart failure, dilated cardiomyopathy, dyslipidemia, hypertension who presented to the ED with worsening shortness of breath.? Upon arrival [place] [address]. Patient was started on IV Lasix b.i.d.. Patient was also experiencing acute on chronic respiratory failure without being able to complete sentences tripoding and inability eat. Patient decided that she would like to be comfortable and explored the option of hospice. Her daughters were present and decided to put her mother on hospice with [facility]. Potassium is little high today however is stable at this point time. Vital signs and labs are stable. Patient does have a known dilated cardiomyopathy. EF is 5-10%. Patient stated that she is tired and really is unable to move around or do things that she would normally do. Patient is being discharged home on hospice. Family is aware, and all affairs seem to be in order. Status at Discharge Functional status at discharge: uses cane/walker Overall status at discharge: patient is progressing back to baseline Time Spent with Patient Time attestation: Total time spent providing and/or coordinating discharge services: 37 minutes Time spent: Greater than 30 minutes Specific discharge activities: Diagnostic testing, chart review, developing a treatment plan, education, care coordination documentation, physical exam, result review Exam Const: General: cooperative, healthy appearing, no acute distress, well developed, alert, awake and well nourished Nutritional Appearance: well nourished Orientation/consciousness: patient oriented x3 Limitations: no limitations HENMT: Head: normal to inspection Ears: hearing grossly normal b
[2022-05-18 14:13] VITALS: BP 100/51; PULSE 92; RESP 20; TEMP 36.4; O2SAT 99
== END 2022-05-18 17:49 | disposition hospice, home (50) ==
LOC: ANHED 23:22 → ANH2MED 05-17 01:23
PROVIDERS: Admitting Provider Internal Medicine; Emergency Provider Emergency Medicine; Visit Provider Nurse Practitioner
DX: I50.23 Acute on chronic systolic (congestive) heart failure (principal); I48.0 Paroxysmal atrial fibrillation; I42.0 Dilated cardiomyopathy; I11.0 Hypertensive heart disease with heart failure; J96.20 Acute and chronic respiratory failure, unspecified whether with hypoxia or hypercapnia; R74.01 Elevation of levels of liver transaminase levels; Z51.5 Encounter for palliative care; I27.20 Pulmonary hypertension, unspecified; I44.7 Left bundle-branch block, unspecified; R94.31 Abnormal electrocardiogram [ECG] [EKG]; I25.10 Atherosclerotic heart disease of native coronary artery without angina pectoris; Z95.1 Presence of aortocoronary bypass graft; Z95.5 Presence of coronary angioplasty implant and graft; E78.5 Hyperlipidemia, unspecified; J43.9 Emphysema, unspecified; I73.9 Peripheral vascular disease, unspecified; J98.11 Atelectasis; Z66 Do not resuscitate; Z87.891 Personal history of nicotine dependence; Z79.01 Long term (current) use of anticoagulants; Z79.82 Long term (current) use of aspirin; Z79.899 Other long term (current) drug therapy; Z82.49 Family history of ischemic heart disease and other diseases of the circulatory system
CPT/HCPCS: 36415; 36600; 71045; 80053; 80074; 82805; 83735; 83880; 85025; 85610; 85730; 93005; 96374; 99285; A9270; G0378; J1940